=== PATIENT | female | born 1930 | race Caucasian/White ===

== ENCOUNTER 2018-09-10 16:57 | Inpatient (IN) | payer MEDICARE, BC ==
[~2018-09-10] VITALS: Ht 167.6 cm; Wt 65.0 kg
[~2018-09-10 16:57] MED LIST: ASPIRIN 32325 MG/TA1 PO; ASPIRIN 32325 MG/TAB PO; NO HOME MEDICATIONS; NORCO 325 MG-7.1 TAB PO; OCUVITE1 TA1 PO
[2018-09-10 17:43] LABS: BASO % 0.2 % (0.0-2.0); EOS % 0.1 % (0-4.0); GRAN # 13.7 (1.4-6.5); GRAN % 87.6 % (42.2-75.2); HEMATOCRIT 38.4 % (37.0-47.0); HEMOGLOBIN 12.6 g/dl (12.5-16.0); LYMPH # 0.7 (1.2-3.4); LYMPH % 4.7 % (20.0-51.0); MEAN CELL VOLUME 91 fl (80.0-100.0); MEAN CORPUSCULAR HEMOGLOBIN 30 pg (27.0-31.0); MEAN CORPUSCULAR HGB CONC 33 g/dl (33.0-37.0); MEAN PLATELET VOLUME 10.9 fl (7.4-10.4); MONO # 1.1 (0.1-0.6); PLATELET COUNT 252 K/mm3 (130-400); RED BLOOD COUNT 4.23 M/mm3 (4.10-5.30); REDCELL DISTRIBUTION WIDTH-CV 12.5 % (11.5-14.5)
[2018-09-10 18:06] LABS: PROTHROMBIN TIME 11.2 SECONDS (9.7-12.8)
[2018-09-10 18:11] LABS: COLLECTION METHOD CLEAN CATCH
[2018-09-10 18:12] LABS: ALANINE AMINOTRANSFERASE < 6 U/L (9-52); ALBUMIN 4.4 gm/dL (3.5-5.0); ALKALINE PHOSPHATASE 103 U/L (50-136); ANION GAP 12 mmol/L (7-16); AST,SGOT 29 U/L (15-37); BILIRUBIN,TOTAL 0.5 mg/dL (0.0-1.0); BLOOD UREA NITROGEN 28 mg/dL (7-17); C-REACTIVE PROTEIN 0.6 mg/dL (0.0-0.9); CALCIUM 9.6 mg/dL (8.4-10.2); CARBON DIOXIDE 25 mmol/L (22-30); CHLORIDE 103 mmol/L (98-107); CREATININE, serum 0.87 (0.52-1.25); GLUCOSE 123 mg/dL (74-106); POTASSIUM 4.2 mmol/L (3.4-5.0); SODIUM 140 mmol/L (137-145); TOTAL PROTEIN 8.1 gm/dL (6.4-8.2)
[2018-09-10 18:22] LABS: TROPONIN-I < 0.012 ng/mL (0.000-0.035)
[2018-09-10 18:23] LABS: MUCOUS Present /lpf; PH 5 (5-8); SQUAMOUS EPITHELIAL 0-2 /hpf; URINE APPEARANCE Hazy; URINE BACTERIA Rare /hpf; URINE BILIRUBIN Negative (NEGATIVE); URINE BLOOD 2+ (NEGATIVE); URINE COLOR Yellow; URINE GLUCOSE Negative (NEGATIVE); URINE KETONE Trace (NEGATIVE); URINE LEUKOCYTE ESTERASE 2+ (NEGATIVE); URINE NITRATE Negative (NEGATIVE); URINE PROTEIN(semi-quant) Negative (NEGATIVE); URINE UROBILINOGEN Negative (NEGATIVE)
[2018-09-10 22:26] VITALS: BP 143/52; PULSE 86; TEMP 98.1
--- NOTE | 2018-09-10 22:27 | NUR ---
pt arrived to medical floor, oriented to staff and room. A+Ox4, reports pain 3/10 when taking a deep breath- 1/10 when just relaxing. pt has nitropas on her left shoulder blade. no SOA. normal heart sounds and rythm. bowel sounds heard throughout abd. abd soft. BM 09/10/18. lung bases- fine crackles. upper lung field clear. no edema no lang. pedal and radial pulses 2+. no skin break down noted. VSS. pt reports no needs at this time. call light in reach
[2018-09-10 23:22] VITALS: BP 145/54; PULSE 87; TEMP 97.8
[2018-09-11] VITALS (9 sets, daily range): BP systolic 103–139; BP diastolic 28–82; PULSE 83–90; TEMP 97.5–98.3
--- NOTE | 2018-09-11 01:49 | NUR ---
PT REPORTS 8/10 CHEST PAIN. VSS, SAT 93%. DR COWAN NOTIFIED. NITRO AND MORPHINE GIVEN AT THIS TIME. EKG ORDERED NOW. MORNING TROPONIN AND EKG ORDERED. WILL CONTINUE TO MONITOR.
--- NOTE | 2018-09-11 01:57 | NUR ---
AFTER FIRST SUBL NITRO AND 1 MG OF MORPHINE PT DECREASED FROM 8/10 TO 4/10- 2ND NITRO GIVEN AT THIS TIME.
--- NOTE | 2018-09-11 02:06 | NUR ---
BP STABLE. PAIN 4/10 -THIRD NITRO GIVEN AT THIS TIME BP AFTER THIRD SUBL NITRO LOW BUT STABLE. PAIN 3/10. WILL CONTINUE TO MONITOR CLOSELY.
--- NOTE | 2018-09-11 03:30 | NUR ---
PT HAD CHEST PAIN AT THIS TIME. MOPHINE GIVEN AND GAVE RELIEF. PT SLEEPING AT THIS TIME. CALL LIGHT IN REACH. WILL CONTINUE TO MINITOR.
--- NOTE | 2018-09-11 05:42 | NUR ---
PT HAD CHEST PAIN DURING NIGHT. NITRO AND MORPHINE RELIEVED PAIN . PAIN. VSS. NO SOA. ON ROOM AIR. NPO FOR POSSIBLE PROCEDURE. PT REPORTS NOT BEING ABLE TO SLEEP. IV FLUSHES WELL, NO REDNESS. NO SWELLING. NO NEEDS AT THIS TIME. CALL LIGHT IN REACH
--- NOTE | 2018-09-11 07:28 | NUR ---
REPORT GIVEN TO VENESSA NOBLE
--- NOTE | 2018-09-11 08:22 | NUR ---
Pt awake and alert upon entry, no C/O pain at this time, started the remaining bowel prep for procedure this afternoon, shift assessments complete, left Pt call light in reach, bed in lowest position.
--- NOTE | 2018-09-11 09:06 | NUR ---
Pt awake upon entry, states that her chest pain in much better, shift assessments comnplete, left Pt call light in reach, bed in lowest position.
--- NOTE | 2018-09-11 10:59 | NUR ---
Initial visit; Patient thanked Roadway Designer for looking in on her and offering God's blessings.
--- NOTE | 2018-09-11 15:25 | NUR ---
CHRISTIE met with patient and daughter to discuss discharge planning. Patient lives independently at home alone but reports she is independent with her ADLs and her children live close by. Patient's PCP is Dr Lenz and she obtains prescriptions from [facility] pharmacy. Patient does not use any DME or home health servcies. Patient reports she does have a DPOA-HC. Patient's daughter reports they will need to obtain a copy from their tax associate attorney. SW does not anticipate any discharge needs.
--- NOTE | 2018-09-11 19:56 | NUR ---
Pt rrested in room during the day, little C/O pain needing medication for control. VS have remained stable.
--- NOTE | 2018-09-11 21:15 | NUR ---
TELE CALLED- PT IN AFIB WITH RVE RATE 140s. VSS AT THIS TIME. DR COWAN CALLED. ORDERS GIVEN: -BNP AND TROPONIN FOR MORNING LABS -AMIO -INCREASE IN LOVENOX SQ ORDERS PLACED AND GIVEN AT THIS TIME. PT IS GOING IN AND OUT OF AFIB WITH RVR/AFIB/NSR. NO S/S REPORTED BY PT. EXPLAINED RYTHM AND MEDICATIONS TO PT. PT REPORTS UNDERSTANDING. CHEST CT- NEG FOR A PE- RELAYED INFORMATION TO DR COWAN.
--- NOTE | 2018-09-11 21:30 | NUR ---
PT RESTING IN BED A+OX4. REPORTS NO PAIN AT THIS TIME. LUNGS CLEAR X4. BOWEL SOUNDS HEARD THROUGHOUT. NSR HEARD AT THIS TIME- NORMAL RRR HEARD. NO EDEMA NOTED. PEDAL AND RADIAL PULSES 2+. NO SOA. TELE ON. EDUCATION PROVIDED ON AMIO AND LOVENOX AND AFIB. PT REPORTS UNDERSTANDING AND NO QUESTIONS AT THIS TIME. SHIFT ASSESSMENT COMPLETE. NO NEEDS AT THIS TIME. CALL LIGHT IN REACH
[2018-09-12] VITALS (7 sets, daily range): BP systolic 106–127; BP diastolic 41–84; PULSE 75–82; TEMP 97.7–98.2
--- NOTE | 2018-09-12 05:41 | NUR ---
PT SLEPT THROUGHOUT NIGHT. PT IN AND OUT OF AFIB/AFIB W/RVR/AND NSR. TELE ON. DR COWAN NOTIFIED AND ORDERED GIVEN. AMIO STARTED. NO S/S WITH AFIB. PT REPORTED MINIMAL PAIN DURING NIGHT. IV FLUSHES WELL, NO REDNESS, NO SWELLING. PT GAIT STEADY, INDEPENDENT IN ROOM. REPORTS NO SOA. NO NEEDS A THIS TIME. CALL LIGHT IN REACH
--- NOTE | 2018-09-12 07:07 | NUR ---
REPORT GIVEN TO DAY SHIFT RN
[2018-09-12 07:12] LABS: TROPONIN-I 0.017 ng/mL (0.000-0.035)
--- NOTE | 2018-09-12 09:10 | NUR ---
Patient alert and oriented, answers questions appropriately. See assessment. Heart tones strong and even, pulses palpable. No c/o chest, jaw or shoulder pain. No other c/o at this time.
--- NOTE | 2018-09-12 20:15 | NUR ---
PT RESTING IN BED A+OX4. REPORTS NO PAIN AT THIS TIME OR DURING DAY. VSS. TELE ON. LUNGS CLEAR X4. AUDIBEL BOWEL SOUNDS. HEART NORMAL RRR. STEADY GAIT. EDUCATION ON HEART CATH, AMIO AND LOVENOX. IV FLUSHES WELL, NO REDNESS, NO SWELLING.
--- NOTE | 2018-09-13 03:02 | NUR ---
pt reports no pain during night. sleeping well during the night. no needs, call light in reach
[2018-09-13 03:22] VITALS: BP 134/59; PULSE 69; TEMP 97.7
--- NOTE | 2018-09-13 07:22 | NUR ---
pt had an uneventful night. reported no pain. iv flushes well, no redness no swelling. tele on. reports no needs at this time. call light in reach. report given to dayshift nurse.
[2018-09-13 07:36] VITALS: BP 112/48; PULSE 66; TEMP 97.6
[2018-09-13 11:00] VITALS: BP 132/48; PULSE 68; TEMP 98.1
[2018-09-13 16:25] VITALS: BP 142/51; PULSE 64; TEMP 97.6
[2018-09-13 19:37] VITALS: BP 135/48; PULSE 66; TEMP 98
--- NOTE | 2018-09-13 20:00 | NUR ---
Shift assessment complete. Pt resting in bed, awake, a&o, cooperative c cares. Pt denies pain at this time. INT patent. Tele in place. Pt denies needs. Call light in reach, will monitor.
[2018-09-13 21:06] LABS: HEMOGLOBIN 11.1 g/dl (12.5-16.0); MEAN CELL VOLUME 90 fl (80.0-100.0); MEAN CORPUSCULAR HEMOGLOBIN 30 pg (27.0-31.0); MEAN CORPUSCULAR HGB CONC 33 g/dl (33.0-37.0); MEAN PLATELET VOLUME 11.5 fl (7.4-10.4); PLATELET COUNT 222 K/mm3 (130-400); RED BLOOD COUNT 3.73 M/mm3 (4.10-5.30); REDCELL DISTRIBUTION WIDTH-CV 12.2 % (11.5-14.5)
[2018-09-13 21:16] LABS: HEMATOCRIT 33.5 % (37.0-47.0)
[2018-09-13 21:19] LABS: PROTHROMBIN TIME 11.3 SECONDS (9.7-12.8)
[2018-09-13 21:22] LABS: CALCIUM 9.1 mg/dL (8.4-10.2); CREATININE, serum 0.9 (0.52-1.25); PARTIAL THROMBOPLASTIN TIME 33.1 SECONDS (26.0-37.0)
[2018-09-13 23:46] VITALS: BP 152/81; PULSE 72; TEMP 98.3
[2018-09-14] VITALS (13 sets, daily range): BP systolic 84–189; BP diastolic 42–78; PULSE 60–76; TEMP 97.5–97.7
--- NOTE | 2018-09-14 10:12 | NUR ---
PT SITTING IN BED WATCHING TV. NO C/O PAIN AT THIS TIME. ADMINSTERED PT AM MEDICATIONS, HEART CATH TO BE AT LATER HOUR THIS AM OR IN EARLY AFTERNOON. PT STATED SHE STILL WAS SOMEWHAT UNCLEAR ON PROCEDURE. THIS NURSE PRINTED OFF PT EDUCATION FOR PT ABOUT CHEST PAIN AND ABOUT HEART CATH FOR PT TO READ THREW. NO ISSUES OR CONSERNS VOICED AT THIS TIME.
--- NOTE | 2018-09-14 15:00 | NUR ---
PT DOWN FOR HEART CATH AT THIS TIME.
[2018-09-14] MEDS ORDERED: TOPROL XL 25MG25 MG PO (15:53)
[2018-09-14] MEDS ORDERED: ASPIRIN 81M81 MG/TA2 PO (15:54)
[2018-09-14] MEDS ORDERED: CORDARONE200 MG/TAB PO (15:54)
[2018-09-14] MEDS ORDERED: LIPITOR20 MG PO (15:54)
--- NOTE | 2018-09-14 16:00 | NUR ---
PT RETURNED TO FLOOR AT THIS TIME, POST OP VITALS BEING OBTIANED. NO C/O PAIN OR NOTED BLEEDING TO RADIAL SITE, READIAL BAND IN PLACE.
--- NOTE | 2018-09-14 18:14 | NUR ---
VITALS SIGNS REMAIN STABLE, HAD ONE DIP IN B/P WHEN SHE WAS TAKING A NAP BUT RETURNED TO BASELINE. POST-OP FLUIDS REMAIN INFUSING. THIS NURSE REMOVED 5ML OF AIR FROM BAND AT THIS TIME, 2 HRS POST OP, NO NOTED BLEEDING. WILL CONTINUE TO MONITOR
--- NOTE | 2018-09-14 19:15 | NUR ---
Shift report recvieved. Shift assessment complete. Pt resting in bed, awake, a&o, cooperative c cares. Pt c/o pain at radial cath site, denies chest pain or any other c/o. TR band removed et bandaid applied at this time. Mild \ecchymosis noted around cath site, no bleeding or edema. VSS. Tele in place. IV INT'd. Discharge order et POC reviewed c pt et daughter, both verbalize understanding. Pt denies further needs. Call light in reach, will monitor.
--- NOTE | 2018-09-14 19:20 | NUR ---
LAST OF AIR REMOVED FROM RADIAL ARM BAND, BAND LEFT ON, NO NOTED BLEEDING AT SITE. NO ISSUES OR CONSERNS VOICED. REPORT GIVEN TO WILLIAMS CLIFFORD
--- NOTE | 2018-09-14 21:00 | NUR ---
Pt condition unchanged. VSS. Radial cath site s bleeding/edema or other complication. Discharge teaching reviewed c pt et daysi. Questions invited et answered, both verbalize understanding. Tele removed. INT dc'd. Pt escorted out per wheelchair by GIGI tavarez et all belongings.
== END 2018-09-14 21:15 | disposition home or self-care (01) | DRG 287 ==
LOC: COL.ER 16:57 → MEDICAL 21:16
PROVIDERS: Emergency Medicine; ADMIT Internal Medicine Interventional Cardiology
PROC: 4A023N7 Measurement of Cardiac Sampling and Pressure, Left Heart, Percutaneous Approach (ICD-10-PCS; principal; 2018-09-14)
PROC: B2111ZZ Fluoroscopy of Multiple Coronary Arteries using Low Osmolar Contrast (ICD-10-PCS; 2018-09-14)
DX: I25.110 Atherosclerotic heart disease of native coronary artery with unstable angina pectoris (principal); E78.5 Hyperlipidemia, unspecified; I10 Essential (primary) hypertension; R07.89 Other chest pain
CPT/HCPCS: A4216; C1769; G0378; J0696; J1644; J1650; J1885; J2250; J2270; J3010; J7030; Q9967

== ENCOUNTER 2020-09-05 11:27 | Inpatient (IN) | payer MEDICARE, BC ==
[~2020-09-05] VITALS: Ht 167.6 cm; Wt 56.8 kg
[~2020-09-05 11:27] MED LIST changes: +ASPIRIN 81M81 MG/TA2 PO; +CORDARONE200 MG/TAB PO; +LIPITOR20 MG PO; +TOPROL XL 25MG25 MG PO
[2020-09-05 12:19] LABS: BASO % 0.1 % (0.0-2.0); GRAN # 12.7 (1.4-6.5); GRAN % 87.4 % (42.2-75.2); HEMOGLOBIN 12.2 g/dl (12.5-16.0); LYMPH # 0.8 (1.2-3.4); LYMPH % 5.3 % (20.0-51.0); MEAN CELL VOLUME 87 fl (80.0-100.0); MEAN CORPUSCULAR HEMOGLOBIN 30 pg (27.0-31.0); MEAN CORPUSCULAR HGB CONC 34 g/dl (33.0-37.0); MEAN PLATELET VOLUME 10.8 fl (7.4-10.4); MONO % 6.7 % (1.7-9.3); PLATELET COUNT 239 K/mm3 (130-400); RED BLOOD COUNT 4.14 M/mm3 (4.10-5.30); REDCELL DISTRIBUTION WIDTH-CV 13.4 % (11.5-14.5)
[2020-09-05 12:23] LABS: HEMATOCRIT 36.2 % (37.0-47.0)
[2020-09-05 12:27] LABS: ALBUMIN 4.2 gm/dL (3.5-5.0); CALCIUM 9.3 mg/dL (8.4-10.2); CREATININE, serum 0.68 (0.52-1.25); POTASSIUM 3.9 mmol/L (3.4-5.0); TOTAL PROTEIN 7.8 gm/dL (6.4-8.2)
[2020-09-05 16:42] VITALS: BP 160/78; PULSE 96; TEMP 98
[2020-09-05 17:08] LABS: COLLECTION METHOD CLEAN CATCH
[2020-09-05 17:16] LABS: PH 6 (5-8); SQUAMOUS EPITHELIAL 0-2 /hpf; URINE APPEARANCE Clear; URINE BACTERIA None Seen /hpf; URINE BILIRUBIN Negative (NEGATIVE); URINE BLOOD 1+ (NEGATIVE); URINE COLOR Yellow; URINE GLUCOSE 1+ (NEGATIVE); URINE KETONE Trace (NEGATIVE); URINE LEUKOCYTE ESTERASE Negative (NEGATIVE); URINE NITRATE Negative (NEGATIVE); URINE PROTEIN(semi-quant) Negative (NEGATIVE); URINE UROBILINOGEN Negative (NEGATIVE)
--- NOTE | 2020-09-05 19:06 | NUR ---
Assessment completed, alert/oriented, vital signs stable, pain rated 5-6/ 10, morphine was making her nauseated in ER, we will hold off on pain meds for now, heart RRR/ SR on tele, lungs CTA/ no resp.difficulty, left knee swelling noted, ICE applied to left hip, allergies/pharmacy/meds reviewed, ELA applied to unaffected LE, will continue to monitor
[2020-09-05 20:05] VITALS: BP 144/62; PULSE 64; TEMP 98.2
--- NOTE | 2020-09-05 20:30 | NUR ---
Pt. laying in bed. Pt. is A&OX3, assessment complete. IV to lt. wrist patent, IV fluids infusing per orders. Pt. reports pain at a 5 on pain scale, gave pain meds per orders. Pt. denies further needs, call light within reach.
[2020-09-05 23:48] VITALS: BP 131/52; PULSE 91; TEMP 97.5
[2020-09-06] VITALS (11 sets, daily range): BP systolic 99–153; BP diastolic 39–66; PULSE 72–96; TEMP 97.4–98.2
[2020-09-06 07:03] LABS: HEMOGLOBIN 11.4 g/dl (12.5-16.0); MEAN CELL VOLUME 91 fl (80.0-100.0); MEAN CORPUSCULAR HEMOGLOBIN 30 pg (27.0-31.0); MEAN CORPUSCULAR HGB CONC 33 g/dl (33.0-37.0); MEAN PLATELET VOLUME 11.5 fl (7.4-10.4); PLATELET COUNT 213 K/mm3 (130-400); RED BLOOD COUNT 3.82 M/mm3 (4.10-5.30); REDCELL DISTRIBUTION WIDTH-CV 13.8 % (11.5-14.5)
[2020-09-06 07:04] LABS: HEMATOCRIT 34.7 % (37.0-47.0)
[2020-09-06 07:12] LABS: CALCIUM 9.1 mg/dL (8.4-10.2); CHOLESTEROL RISK RATIO 2.5; CREATININE, serum 0.85 (0.52-1.25)
--- NOTE | 2020-09-06 08:00 | NUR ---
PATIENT IS A&O. VSS WITH TELE INPLACE. DENIES PAIN AT REST IN LLE. LLE IS EXTERNALLY ROTATED AND SHORTENED. TEDS TO RLE. SCD'S TO BLE. PATIENT IS ON BEDREST AND NPO FOR PENDING SURGERY TODAY. HOSPITALIST HAS CLEARED PATIENT, ORTHO NOTIFIED. PATIENT'S RECORDS REQUESTED FROM PCP. PATIENT IS NON-COMPLIENT WITH HOME MEDS AND HASN'T SEEN PCP SINCE 2019. WAITING ON RECORDS TO BE FAXED. IV FLUIDS INFUSING INTO LEFT WRIST IV. BHANDARI TO DD. HEAD TO TOE ASSESSMENT COMPLETE. NO OTHER NEEDS. CALL LIGHT IN REACH.
--- NOTE | 2020-09-06 10:50 | NUR ---
Initial visit; Patient thanked Colored Leather Setter for looking in on her and offering prayer and God's blessings.
--- NOTE | 2020-09-06 11:47 | NUR ---
SW met with patient to complete intake. Patient states that she lives in [place] alone, POC is daughter Anita [phone] and daughter Romana [phone]. Patient states that she uses a cane most of the time to get around, and is independent with ADL's. Patient states that her PCP is Dr. Lenz, pharmacy is [facility], and is able to afford her medications. Patient states that she will check her records for the documenation for the [facility]- and get a copy to the facility. Patient provides that she was informed that she needed to go to rehab and would prefer the one in [place], but is open to any other places close by. SW assisted with sending referrals to each agency: [place], [facility] and [facility] all in which patient was okay with. SW will continue to follow. Plan: skilled
--- NOTE | 2020-09-06 13:50 | NUR ---
NURSING STAFF NOTIFIED OF OR TIME. NO ORDERS, BLANK CONCENT ON CHART. DAUGHTER NOTIFIED. ANESTHESIA NOW AT BEDSIDE.
--- NOTE | 2020-09-06 14:15 | NUR ---
AT BEDSIDE. CONSENT FILLED OUT AND OBTAINED VIA PHONE WITH DAUGHTER. PATIENT IS CONFUSED AT TIMES. DAUGHTER GAVE CONSENT FOR SURGERY. PATIENT GOING DOWN TO OR VIA BED.
--- NOTE | 2020-09-06 17:10 | NUR ---
PATIENT BACK IN ROOM 329 POST OP LEFT HIP FX REPAIR. PATIENT IS VERY DROWSY AND CURRENTLY SLEEPING. DAUGHTER AT BEDSIDE. NOTED SOFT PRESSURES IN THE 90'S TO LOW 100'S SYSTOLIC. PATIENT IS PALE. HEART RATE IS IRREGULAR ON TELE IN THE 60'S. PATIENT HAS A HX OF A-FIB. PATIENT APPEARS TO BE COMFORTABLE. LEFT HIP DRESSING IS CD&I. IV FLUIDS INFUSING INTO LEFT WRIST VIA PUMP. PATIENT RESTING WITH CALL LIGHT IN REACH.
--- NOTE | 2020-09-06 21:00 | NUR ---
Pt. laying in bed at this time. Pt. is A&OX3, but forgettfull that she had surgery. Shift assessment complete. IV to lt. wrist patent, IV fluids infusing per orders. Lao catheter to DD, clear yellow urine noted. Dressing to lt. hip CDI. Pt. denies pain or other needs, call light within reach.
[2020-09-07] VITALS (262 sets, daily range): BP systolic 91–135; BP diastolic 46–67; PULSE 78–140; TEMP 97.5–98.7; O2SAT 89–100
--- NOTE | 2020-09-07 01:50 | NUR ---
fiberglass quality technician reports that pt.'s heart rate in the 140's. JASMEET Pal notified, orders for EKG.
--- NOTE | 2020-09-07 01:56 | NUR ---
EKG complete, see chart. Pt.'s vital stable.
[2020-09-07 06:36] LABS: BASO % 0.1 % (0.0-2.0); EOS % 0.3 % (0-4.0); GRAN # 6.3 (1.4-6.5); GRAN % 69.9 % (42.2-75.2); LYMPH # 1.6 (1.2-3.4); LYMPH % 17.7 % (20.0-51.0); MEAN CELL VOLUME 90 fl (80.0-100.0); MEAN CORPUSCULAR HEMOGLOBIN 29 pg (27.0-31.0); MEAN CORPUSCULAR HGB CONC 32 g/dl (33.0-37.0); MEAN PLATELET VOLUME 11.4 fl (7.4-10.4); MONO % 11.4 % (1.7-9.3); PLATELET COUNT 196 K/mm3 (130-400); RED BLOOD COUNT 3.45 M/mm3 (4.10-5.30); REDCELL DISTRIBUTION WIDTH-CV 13.5 % (11.5-14.5)
[2020-09-07 06:39] LABS: HEMATOCRIT 31.1 % (37.0-47.0)
--- NOTE | 2020-09-07 09:03 | NUR ---
Contacted hospitalist, patient HR 140's. Notified RT of EKG orders. Patient asymptomatic. VSS, 120/47, 148, 92% ON 2l.
--- NOTE | 2020-09-07 09:38 | NUR ---
Dr. White in to see patient.
--- NOTE | 2020-09-07 10:08 | NUR ---
Initiated cardizem drip per orders. Patient denies needs at this time.
[2020-09-07 10:12] LABS: CALCIUM 8.6 mg/dL (8.4-10.2); CREATININE, serum 0.83 (0.52-1.25); MAGNESIUM 1.9 mg/dL (1.6-2.3); POTASSIUM 3.6 mmol/L (3.4-5.0)
--- NOTE | 2020-09-07 10:52 | NUR ---
Attempted to call daughter Anita to update on patient status.
--- NOTE | 2020-09-07 10:56 | NUR ---
SW followed up with facilities referrals. [facility] accepted, [facility] accepted. SW informed that patient will be transfered to ICU due to a clinical need. SW will continue to follow and send updates to facilities as needed.
[2020-09-07 10:58] LABS: PARTIAL THROMBOPLASTIN TIME 22.8 SECONDS (26.0-37.0)
--- NOTE | 2020-09-07 11:05 | NUR ---
Notified by Tele that patient converted to Sinus rhythm, notified hospitalist and obtained EKG.
--- NOTE | 2020-09-07 11:50 | NUR ---
Attempted to call report to ICU
--- NOTE | 2020-09-07 11:52 | NUR ---
Patient HR back to 140's, notified hospitalist and ekg obtained.
--- NOTE | 2020-09-07 12:13 | NUR ---
Cardizem drip increased to 10ml/hr per orders by warehouse general laborer. Pedro CLIFFORD.
--- NOTE | 2020-09-07 12:20 | NUR ---
Report to Blake CLIFFORD, patient transfering to ICU
--- NOTE | 2020-09-07 12:40 | NUR ---
1240: Pt arrived from Surgical floor, awake, alert and cunfused and disoriented. Pt unable to state reason for for transfer to ICU. Pt however is pleasant and able to state name and , pt did think she was in [place]. Reporientation and education provided, recall limited. 1300: pharmacy called for proper tubing to switch from diltiazem gtt to amiodarone gtt. 1330: Tubing arrived and gtt initiated, diltiazem gtt stopped.
--- NOTE | 2020-09-07 16:36 | NUR ---
Report taken from VENESSA Lozano. Pt resting in bed breathing even and unlabored on 2L O2 via NC. Pt denies any SOB or pain at this time. LLE elevated on pillows, swelling to L hip dressing CDI. Amio and heparin infusing per protocol. Pt has no needs at this time.
--- NOTE | 2020-09-07 20:00 | NUR ---
PATIENT IS CONFUSED, ORIENTED X1. HR REPORTED TO BE HIGH THE 140'S, A-FIB ON TELE. HR IS CURRENTLY IN THE 80'S ON AMIO GTT INFUSING AT 0.5MG/MIN INTO LEFT FORARM IV. HEPARIN GTT ALSO INFUSING INTO ANOTHER LEFT FORARM IV AT 10CC/HR. PATIENT HAS HX OF A-FIB BUT IS KNOWN TO BE NON-COMPLIENT WITH MEDS & FOLLOWING UP WITH HER PCP. HEART RATE SOUNDS REGULAR TO AUSCULTATION AND IS RATE CONTROLED IN THE 80-90'S. ALL OTHER VSS. PATIENT DENIES SOA OR PAIN. LEFT HIP IS SWOLLEN WITH ECCYMOSIS FROM HIP FX REPAIR. LEFT HIP DRESSINGS ARE CD&I WITH GAUZE & TEGADERM. TEDS & SCD'S TO BLE. POSITIVE PEDAL PULSES TO BLE. BHANDARI TO DD WITH SMALL AMOUNTS OF CLEAR YELLOW URINE NOTED. PATIENT TOLERATING MECH SOFT DIET. NO C/O N/V. PATIENT WAS ABLE TO SWALLOW PILLS WITHOUT DIFFICULTY. HEAD TO TOE ASSESSMENT COMPLETE. DNR STATUS REVIEWED. NO OTHER NEEDS AT THIS TIME. CALL LIGHT IN REACH.
[2020-09-08] VITALS (510 sets, daily range): BP systolic 90–135; BP diastolic 47–65; PULSE 85–130; TEMP 97.6–98.3; O2SAT 69–100
--- NOTE | 2020-09-08 | NUR ---
PATIENT HAS BEEN RESTING QUIETLY. PATIENT HAS BEEN GOING IN & OUT OF A-FIB. HR RANGING FROM 80-130'S. PATIENT IS ASYMPTOMATIC. ALL OTHER VSS. I&O'S COMPLETED. NO NEEDS. LAB IS NOW AT BEDSIDE TO DRAW HEPXA
[2020-09-08 06:11] LABS: MEAN CELL VOLUME 90 fl (80.0-100.0); MEAN CORPUSCULAR HGB CONC 33 g/dl (33.0-37.0); MEAN PLATELET VOLUME 10.9 fl (7.4-10.4); PLATELET COUNT 192 K/mm3 (130-400); RED BLOOD COUNT 2.97 M/mm3 (4.10-5.30); REDCELL DISTRIBUTION WIDTH-CV 13.7 % (11.5-14.5)
[2020-09-08 06:12] LABS: HEMATOCRIT 26.6 % (37.0-47.0); HEMOGLOBIN 8.7 g/dl (12.5-16.0); MEAN CORPUSCULAR HEMOGLOBIN 29 pg (27.0-31.0)
[2020-09-08 06:20] LABS: CALCIUM 8.2 mg/dL (8.4-10.2); CREATININE, serum 0.76 (0.52-1.25); MAGNESIUM 1.9 mg/dL (1.6-2.3); POTASSIUM 3.9 mmol/L (3.4-5.0)
--- NOTE | 2020-09-08 07:45 | NUR ---
PATIENT FOUND SITTING UP IN BED, AWAKE, RESPONDING TO VERBAL STIMULI. ORIENTED X2 WITH INTERMITTENT CONFUSION. PATIENT IS A-FIB WITH HR INTO THE 120'S. HEART SOUNDS IRREGULAR, LUNG SOUNDS CLEAR, BOWEL SOUNDS ACTIVE. 2 IV TO LEFT FOREARM, INFUSING WITHOUT DIFFICULTY. NO IRRITATION NOTED. BHANDARI IN PLACE DRAINING CLEAR YELLOW URINE. PATIENT HAS 2 SURGICAL DRESSINGS TO LEFT OUTER THIGH. BRUISING AND SWELLING NOTED. REMOVED ICE PACK FROM AREA. CONTINUES TO WEAR ELA HOSE. CALL CARDONA WITHIN REACH, ALL SAFETY MAINTAINED.
--- NOTE | 2020-09-08 08:30 | NUR ---
PATIENT CONVERTED TO NSR, WILL CONTINUE TO MONITOR.
--- NOTE | 2020-09-08 14:37 | NUR ---
PATIENT STATES SHE HAS PAIN OF 8/10 TO RIGHT LEG. REQUESTING PAIN PILL AT THIS TIME. PATIENT IS ALERT AND ORIENTED, DAUGHTER AT BEDSIDE.
--- NOTE | 2020-09-08 16:39 | NUR ---
THIS RN CALLED DR. READ IN REGARDS TO SWITCHING TO PO AMIODORONE. ORDERS RECIEVED FOR AMIODORONE PO 400MG BID. ORDERS READ BACK AND CONFIRMED.
--- NOTE | 2020-09-08 20:50 | NUR ---
PT AWAKE, CONFUSED TO PLACE AND IS YELLING OUT FOR HER DAUGHTER. WHEN REORIENTING PT, SHE STATES "I KNOW". PT HAD LEGS OUT OF BED. ELECTED TO MOVE PT TO ROOM 325 FOR SAFETY.
--- NOTE | 2020-09-08 21:03 | NUR ---
MEDICATED WITH HS MEDS INCLUDING OXYCODONE 10MG PO AND MELATONIN 3MG PO FOR PAIN AND SLEEP. TAKES MEDS WITHOUT PROBLEM. SL X2 TO LEFT FOREARM, FLUSHES WELL. BHANDARI TO BSD, YELLOW URINE NOTED. BED ALARM ON.
--- NOTE | 2020-09-09 02:33 | NUR ---
PT HAS RT LEG OUT OF BED, WANTS TO "GO OUT THERE" REPORTS PAIN TO LEFT HIP. REPOSITIONED IN BED AND NORCO GIVEN.
[2020-09-09 04:10] VITALS: BP 126/48; PULSE 96; TEMP 98.9
--- NOTE | 2020-09-09 06:17 | NUR ---
PT TAKES SCHEDULED AM MED AND ONE OXYCODONE 5MG PO FOR LEFT HIP PAIN.
[2020-09-09 07:01] VITALS: BP 118/42; PULSE 86; TEMP 97.5
[2020-09-09 07:32] LABS: MEAN CELL VOLUME 91 fl (80.0-100.0); MEAN CORPUSCULAR HGB CONC 32 g/dl (33.0-37.0); MEAN PLATELET VOLUME 11.3 fl (7.4-10.4); PLATELET COUNT 223 K/mm3 (130-400); RED BLOOD COUNT 2.57 M/mm3 (4.10-5.30); REDCELL DISTRIBUTION WIDTH-CV 13.8 % (11.5-14.5)
[2020-09-09 07:44] LABS: HEMATOCRIT 23.4 % (37.0-47.0); HEMOGLOBIN 7.5 g/dl (12.5-16.0); MEAN CORPUSCULAR HEMOGLOBIN 29 pg (27.0-31.0)
--- NOTE | 2020-09-09 07:50 | NUR ---
PT PROGRESSING W/ PLAN OF CARE. PT RESTING IN BED COMFORTABLY AT THIS TIME. PT ALERT AND ANSWERS QUESTIONS APPROPRIATELY. BHANDARI CATH DRAINING CLEAR, YELLOW URINE, PLAN TO DISCUSS W/ PROVIDER TODAY REGARDING REMOVING BHANDARI CATH. PT DENIES PAIN WHILE AT REST.
[2020-09-09 11:31] VITALS: BP 107/49; PULSE 84; TEMP 97.6
[2020-09-09 14:47] LABS: HEMATOCRIT 23.6 % (37.0-47.0); HEMOGLOBIN 7.6 g/dl (12.5-16.0)
[2020-09-09 16:00] VITALS: BP 129/46; PULSE 84; TEMP 98.6
--- NOTE | 2020-09-09 17:36 | NUR ---
Pt. progressing w/ plan of care. Lao cath removed per KRISTA Hurtado's order. Pt. hygeine provided and tolerated well. Pt. encouraged to get OOB to chair this afternoon but pt. refused. Pt. reports her mild pain to left hip is tolerable. Pt. alert, denies further needs.
[2020-09-09 19:30] VITALS: BP 106/47; PULSE 95; TEMP 98.2
--- NOTE | 2020-09-09 21:26 | NUR ---
PT IN BED. ORIENTED TO SELF, NOT SURE WHERE SHE IS AND WHY. MEDICATED WITH HS MEDS INCLUDING NORCO 1 TAB FOR LEFT HIP DISCOMFORT, TAKES WITHOUT DIFFICULTY. HAS NOT VOIDED SINCE BHANDARI REMOVED LATE AFTERNOON.
--- NOTE | 2020-09-09 22:00 | NUR ---
PT ASSISTED TO BSC WITH 2/GAIT BELT AND WALKER. DOES FAIR. VOIDS 200CC OF YELLOW URINE. BACK TO BED WITH ASSIST OF 2. INCISIONS TO LEFT HIP X2 WITH GAUZE D/I, ECCHYMOSIS PRESENT TO LEFT HIP/LEG. SL X2 TO LEFT FOREARM, FLUSHED WITHOUT PROBLEM.
[2020-09-09 23:57] VITALS: BP 129/40; PULSE 93; TEMP 98.6
[2020-09-10] VITALS (8 sets, daily range): BP systolic 99–140; BP diastolic 40–63; PULSE 82–90; TEMP 97.9–98.8
--- NOTE | 2020-09-10 04:00 | NUR ---
RESTING WELL. DENIES PAIN AT THIS TIME.
[2020-09-10 06:24] LABS: MEAN CELL VOLUME 91 fl (80.0-100.0); MEAN CORPUSCULAR HGB CONC 32 g/dl (33.0-37.0); MEAN PLATELET VOLUME 11.2 fl (7.4-10.4); PLATELET COUNT 231 K/mm3 (130-400); RED BLOOD COUNT 2.22 M/mm3 (4.10-5.30); REDCELL DISTRIBUTION WIDTH-CV 13.8 % (11.5-14.5)
[2020-09-10 06:35] LABS: HEMATOCRIT 20.2 % (37.0-47.0); HEMOGLOBIN 6.5 g/dl (12.5-16.0); MEAN CORPUSCULAR HEMOGLOBIN 29 pg (27.0-31.0)
[2020-09-10 06:41] LABS: CALCIUM 8.3 mg/dL (8.4-10.2); CREATININE, serum 1.07 (0.52-1.25); POTASSIUM 4.4 mmol/L (3.4-5.0)
[2020-09-10 07:20] LABS: EOSINOPHIL 2 % (0-4); LYMPHOCYTE 23 % (20.0-51.0); METAMYELOCYTE 1 % (0-0); NEUTROPHILS 69 % (42.0-75.2)
[2020-09-10 07:21] LABS: PLATELET ESTIMATE NORMAL (NORMAL)
[2020-09-10 07:22] LABS: MICROCYTOSIS 2+
[2020-09-10 07:23] LABS: ANISOCYTOSIS 1+
--- NOTE | 2020-09-10 09:50 | NUR ---
Patient is lying in bed, some blood samples are taken. She is awake and oriented x 2, no nausea or vomiting. Reports constant pain in her left hip. She already finished her breakfast. SCDs and TEDS applied. ICE in the left hip incition. Inciton is warm. No further needs at this time. Call light within reach.
--- NOTE | 2020-09-10 14:19 | NUR ---
It is initiated blood transfusion. Patient is lying in bed.
--- NOTE | 2020-09-10 17:23 | NUR ---
Blood transfusion is completed. Patient tolerated without troubles.
--- NOTE | 2020-09-10 17:26 | NUR ---
Patient has been stable, she is alert but not oriented about the time. One unit of blood was transfused and well tolerated. Waiting for hemoglobin levels to rise tomorrow and be transfered to [facility]. Daughter Anita visited today. Patient is resting in room right now. Nof further needs at this time. Call light within reach.
--- NOTE | 2020-09-10 17:29 | NUR ---
Patient completed blood transfusion and tolerated well. Nurse ordered patient dinner, and will try and get the patient to eat. Patient states food does not taste good and that she is not very hungry. Left thigh incision CDI, ice applied. Denies pain and discomfort when laying still in bed. VSS. Call light within reach. Bed alarm on
--- NOTE | 2020-09-10 21:20 | NUR ---
ASSISTED TO BSC WITH 2/GAIT BELT/WALKER, DOES WELL. VOIDS AND BACK TO BED. DRSG TO LEFT HIP WITH DRAINAGE, NEW GAUZE APPLIED. OUTER LEFT LEG DRSG INTACT, HAS LARGE AMOUNT OF BRUISING NOTED. BACK TO BED. TAKES HS MEDS INCLUDING NORCO 1 TAB FOR PAIN TO LEFT HIP WITH ACTIVITY. SCDS ON. REFUSES ELA BENAVIDES. IS ALERT, ORIENTED TO SELF, NOT SURE WHERE SHE IS OR WHERE HER DAUGHTER IS. REORIENTED AT THIS TIME.
[2020-09-11 00:03] VITALS: BP 116/44; PULSE 89; TEMP 98.2
[2020-09-11 03:07] VITALS: BP 139/46; PULSE 98; TEMP 97.7
--- NOTE | 2020-09-11 03:09 | NUR ---
PT HAS SCOOTED SELF TO EDGE OF BED, THINKS SHE IS GOING TO [place]. ASSISTED BACK TO BED AND REORIENTED AT THIS TIME. COMPLAINS OF "BROKEN HIP" MEDICATED WITH OXYCODONE 10MG PO NOW. TV ON.
--- NOTE | 2020-09-11 04:45 | NUR ---
PT DISORIENTED, ASSISTED TO BSC WITH 1/GAIT BELT/WALKER, DOES WELL. VOIDS AND BACK TO BED. PLACED ICE PACK TO LEFT HIP.
[2020-09-11 06:59] LABS: MEAN CELL VOLUME 88 fl (80.0-100.0); MEAN CORPUSCULAR HGB CONC 32 g/dl (33.0-37.0); PLATELET COUNT 288 K/mm3 (130-400); RED BLOOD COUNT 2.84 M/mm3 (4.10-5.30); REDCELL DISTRIBUTION WIDTH-CV 15.1 % (11.5-14.5)
[2020-09-11 07:06] LABS: HEMATOCRIT 25.1 % (37.0-47.0); MEAN CORPUSCULAR HEMOGLOBIN 28 pg (27.0-31.0)
[2020-09-11 07:31] VITALS: BP 141/51; PULSE 95; TEMP 98.2
--- NOTE | 2020-09-11 08:00 | NUR ---
Patient refused her breakfast and lunch this shift stating that she did not like hospital food. She was seen by therapy and did participate with those therapies. Patient reported pain to her left knee and was given prn pain meds. She reported nausea and this nurse received a new order from Dr. Borges for PO zofran as needed. Patient denied questions.
[2020-09-11 08:38] LABS: BASOPHIL 1 % (0-2); LYMPHOCYTE 15 % (20.0-51.0); METAMYELOCYTE 4 % (0-0); NEUTROPHILS 70 % (42.0-75.2); PLATELET ESTIMATE NORMAL (NORMAL)
[2020-09-11 08:39] LABS: ANISOCYTOSIS 2+
--- NOTE | 2020-09-11 10:17 | NUR ---
Patient resting in recliner, call light in reach and chair alarm set. Patient denies questions at this time. She reports that she does not like the food here at the hospital and that she does not eat a lot at home. Patient reports pain to left hip to be 7/10 and given prn pain med. She reported having some nausea this morning following receiving her oxycodone. Will administer Zofran prior to her dose of hydrocodone this morning.
[2020-09-11] MEDS ORDERED: NORCO 325 MG-51 TAB PO (10:41)
[2020-09-11] MEDS ORDERED: TYLENOL 325MG325 MG PO (10:41)
[2020-09-11] MEDS ORDERED: OSCAL 500 TAB500 MG PO (10:41)
[2020-09-11] MEDS ORDERED: PACERONE400 MG PO (10:41)
[2020-09-11] MEDS ORDERED: VITAMIN C500 MG PO (10:42)
[2020-09-11] MEDS ORDERED: MULTIPLE VITAMI1 TA5 PO (10:42)
[2020-09-11] MEDS ORDERED: PROTONIX 40MG T40 MG PO (10:42)
[2020-09-11] MEDS ORDERED: ZOFRAN ODT4 MG PO (10:42)
[2020-09-11 11:33] VITALS: BP 129/47; PULSE 83; TEMP 97.9
--- NOTE | 2020-09-11 13:10 | NUR ---
Patient was transferred to Inpatient Rehab. Her belongings were transferred over to room 338.
== END 2020-09-11 13:10 | DRG 481 ==
LOC: COL.ER 11:27 → SURG 12:53 → ICU 09-07 12:37 → SURG 09-08 18:19
PROVIDERS: Nurse Practitioner Primary Care; Orthopaedic Surgery; Physician Assistant; ADMIT Internal Medicine
PROC: 0QS736Z Reposition Left Upper Femur with Intramedullary Internal Fixation Device, Percutaneous Approach (ICD-10-PCS; principal; 2020-09-06 14:30)
DX: S72.142A Displaced intertrochanteric fracture of left femur, initial encounter for closed fracture (principal); I50.20 Unspecified systolic (congestive) heart failure; I48.0 Paroxysmal atrial fibrillation; I11.0 Hypertensive heart disease with heart failure; F03.90 Unspecified dementia, unspecified severity, without behavioral disturbance, psychotic disturbance, mood disturbance, and anxiety; E78.5 Hyperlipidemia, unspecified; Z85.3 Personal history of malignant neoplasm of breast; R41.0 Disorientation, unspecified; R11.10 Vomiting, unspecified; D64.9 Anemia, unspecified; D72.829 Elevated white blood cell count, unspecified; Z20.822 Contact with and (suspected) exposure to COVID-19; W18.30XA Fall on same level, unspecified, initial encounter; Y93.9 Activity, unspecified
CPT/HCPCS: 99223-AI; 99232-AI; 99233-AI; 99239; A9284; C1713; C9113; J0282; J0690; J1644; J1650; J2250; J2270; J2405; J2704; J2795; J7030; J7060; P9016

== ENCOUNTER 2020-09-11 11:11 | Inpatient (IN) | payer MEDICARE, BC ==
[~2020-09-11] VITALS: Ht 167.6 cm; Wt 68.2 kg
[~2020-09-11 11:11] MED LIST changes: +MULTIPLE VITAMI1 TA5 PO; +NORCO 325 MG-51 TAB PO; +OSCAL 500 TAB500 MG PO; +PACERONE400 MG PO; +PROTONIX 40MG T40 MG PO; +TYLENOL 325MG325 MG PO; +VITAMIN C500 MG PO; +ZOFRAN ODT4 MG PO
--- NOTE | 2020-09-11 13:10 | NUR ---
Patient arrived to room #338 this afternoon via wheelchair and was weighed on the standing scale. Patient was very agitated when she was brought over. She did not want to stay and wanted to go home. This nurse called her daughter Anita Herndon and she was able to arrive to assist with calming her mom down as well as feeding her some supper. Patient had refused both her breakfast and lunch this shift and when daughter brought her a hamburger she ate it with ease and fast. Discussed food options with patient and her daughter and those were faxed to the kitchen. Patient's daughter will be providing a date of her COVID vaccine that she had received sometime this week. Anita reported that she would be available to help out with any of her moms needs as she does not live to far away from the hospital if staff has difficulties with her. Patient was given tylenol to help with right knee pain. She did not complain of pain to her left hip. See new order for [place] to help with pain control. Patient has been very confused this shift. She was seeing a man in the corner of the room and tried to get out of bed multiple times without using her call light. Staff eventually had to help her out of bed and let her walk around the room to make sure that there was no man looking at her. This nurse had patient wheel around with her while she did other tasks to calm patient down. The chair alarm was on and she wore her mask at all times.
[2020-09-11 17:47] VITALS: BP 141/53; PULSE 80; TEMP 97.6
[2020-09-11 18:00] VITALS: BP 141/53; PULSE 80; TEMP 97.6
--- NOTE | 2020-09-11 19:19 | NUR ---
CHANGE OF SHIFT REPORT RECEIVED FROM DAY SHIFT NURSE. BED ALARM ON WHEN BACK IN BED. PATIENT CONFUSED, FOLLOWS SOME COMMANDS. REPORTS SOME PAIN THAT PATIENT DOES NOT ANSWER QUESTION OF WHERE PAIN IS. CONSTANTLY ATTEMPTS TO GET OUT OF BED, SETTING OFF BED ALARM. TYLENOL GIVEN FOR PAIN.
--- NOTE | 2020-09-12 06:00 | NUR ---
PROTONIX NOT GIVEN AT THIS TIME, PATIENT SLEEPING, DAUGHTER LEFT. PATIENT HAD BEEN AWAKE AND RESTLESS FOR MAJORITY OF NIGHT WITH DAUGHTER SITTING WITH PATIENT AT BEDSIDE. PATIENT WOULD FREQUENTLY ATTEMPT TO GET OUT OF BED, STATING SHE NEEDED TO DRIVE HOME BEFORE "IT GOT TOO DARK TO DRIVE" PATIENT NOT AWARE SHE HAD SURGERY DUE TO L HIP FX.
--- NOTE | 2020-09-12 07:09 | NUR ---
CHANGE OF SHIFT REPORT GIVEN TO DAY SHIFT NURSE, TUCKER CLIFFORD.
[2020-09-12 07:42] VITALS: BP 90/64; PULSE 91; TEMP 99.2
--- NOTE | 2020-09-12 09:00 | NUR ---
is moving about in bed and trying to get up, assisted back into bed and repositioned, left hip with swelling and echymosis, also has 1cm fluid filled area to proximal left hip, no dressing to proximal incision and gauze to lateral and is CD&I
--- NOTE | 2020-09-12 10:30 | NUR ---
moving around in bed and states she needs to go to the bathroom, with 2 assist out of bed and onto bedside commode, voided aprox 1000ml clear destiny urine, then assisted back to bed
[2020-09-12 10:45] LABS: COLLECTION METHOD CLEAN CATCH
[2020-09-12 10:53] LABS: MUCOUS Present /lpf; PH 5 (5-8); SQUAMOUS EPITHELIAL 0-2 /hpf; URINE APPEARANCE Clear; URINE BACTERIA Rare /hpf; URINE BILIRUBIN Negative (NEGATIVE); URINE BLOOD Negative (NEGATIVE); URINE COLOR Yellow; URINE GLUCOSE Negative (NEGATIVE); URINE KETONE Trace (NEGATIVE); URINE LEUKOCYTE ESTERASE Negative (NEGATIVE); URINE NITRATE Negative (NEGATIVE); URINE PROTEIN(semi-quant) Negative (NEGATIVE); URINE RBC 0-2 /hpf; URINE UROBILINOGEN Negative (NEGATIVE)
--- NOTE | 2020-09-12 11:04 | NUR ---
she is very sleepy and partially oriented but does not follow commands well, physical therapy in to work with patient
--- NOTE | 2020-09-12 11:06 | NUR ---
therapist is unable to have her follow any commands, she is talking about dogs and cats and trucks and just very disoriented
--- NOTE | 2020-09-12 12:05 | NUR ---
is more awake now and is able to tell me her name and most of her birthday, took med without difficulty
--- NOTE | 2020-09-12 12:27 | NUR ---
KRISTA Hurtado in to see patient, the patient is sitting up in bed and eating lunch independently
[2020-09-12 12:28] LABS: MEAN CORPUSCULAR HGB CONC 30 g/dl (33.0-37.0); MEAN PLATELET VOLUME 11.6 fl (7.4-10.4); PLATELET COUNT 216 K/mm3 (130-400); RED BLOOD COUNT 2.75 M/mm3 (4.10-5.30); REDCELL DISTRIBUTION WIDTH-CV 15.3 % (11.5-14.5)
[2020-09-12 12:29] LABS: ALBUMIN 3.1 gm/dL (3.5-5.0); BILIRUBIN,TOTAL 2.3 mg/dL (0.0-1.0); CALCIUM 8.4 mg/dL (8.4-10.2); CREATININE, serum 0.76 (0.52-1.25); POTASSIUM 4.6 mmol/L (3.4-5.0); TOTAL PROTEIN 6.1 gm/dL (6.4-8.2)
[2020-09-12 12:30] LABS: HEMATOCRIT 26.1 % (37.0-47.0); HEMOGLOBIN 7.8 g/dl (12.5-16.0); MEAN CELL VOLUME 95 fl (80.0-100.0); MEAN CORPUSCULAR HEMOGLOBIN 28 pg (27.0-31.0)
[2020-09-12 12:57] LABS: ANISOCYTOSIS 1+; BASOPHIL 2 % (0-2); LYMPHOCYTE 11 % (20.0-51.0); METAMYELOCYTE 2 % (0-0); NEUTROPHILS 78 % (42.0-75.2); PLATELET ESTIMATE NORMAL (NORMAL)
[2020-09-12 12:59] LABS: HYPOCHROMIA 3+
[2020-09-12 13:01] LABS: BURR CELLS 1+
--- NOTE | 2020-09-12 13:04 | NUR ---
occupational therapy in to work with patient
--- NOTE | 2020-09-12 14:30 | NUR ---
physical therapy in to work with patient, assisted her into WC and then she was able to manuever the WC and move her out into the [place], was awake and tolerated well
--- NOTE | 2020-09-12 17:42 | NUR ---
was trying to get out of bed and repositioned, c/o pain with movement, attempted to give tylenol and she spit them out and threw 1 of them on the floor, will let her rest and try again later
--- NOTE | 2020-09-12 18:05 | NUR ---
medicated with tylenol 650mg po crushed in mashed potatoes and gravy, she is calling out and angry
[2020-09-12 18:30] VITALS: BP 134/41; PULSE 94; TEMP 99.4
--- NOTE | 2020-09-12 18:31 | NUR ---
she his still very combative and hollering when attempt to do BP, over vital signs obtained but unable to obtain BP, VENESSA Milelr notified
--- NOTE | 2020-09-12 18:46 | NUR ---
was lying quietly in bed looking at TV and was able to obtain BP
--- NOTE | 2020-09-12 19:11 | NUR ---
RECEIVED CHANGE OF SHIFT REPORT FROM DAY SHIFT NURSE. BED ALARM WHEN PATIENT IN BED. PATIENT CONFUSED TO PLACE AND EVENT AND TIME. NOT COOPERATIVE WITH STAFF AT THIS TIME, VERBALIZING SHE NEEDS "TO GO AND CHECK THE MAIL"
--- NOTE | 2020-09-13 | NUR ---
SLEEPING, DOES NOT WAKE WHEN ROOM ENTERED BY STAFF. BREATHING NONLABORED AND EVEN. BED ALARM ON WHILE SLEEPING IN BED. NO INCONTINENCE OF URINE OR BOWEL AT THIS TIME.
[2020-09-13 05:49] VITALS: BP 129/47; PULSE 81; TEMP 97.4
--- NOTE | 2020-09-13 06:30 | NUR ---
Report received from VENESSA Boyd. Patient sleeping in bed. Call light and bedside table are within reach. Will continue to monitor throughout shift,
[2020-09-13 07:05] LABS: MEAN CELL VOLUME 91 fl (80.0-100.0); MEAN CORPUSCULAR HGB CONC 32 g/dl (33.0-37.0); RED BLOOD COUNT 2.42 M/mm3 (4.10-5.30); REDCELL DISTRIBUTION WIDTH-CV 15.2 % (11.5-14.5)
--- NOTE | 2020-09-13 07:06 | NUR ---
CHANGE OF SHIFT REPORT GIVEN TO DAY SHIFT NURSE, FRANCESCO CLIFFORD.
[2020-09-13 07:16] LABS: BILIRUBIN,TOTAL 1.4 mg/dL (0.0-1.0); CREATININE, serum 0.88 (0.52-1.25); POTASSIUM 3.7 mmol/L (3.4-5.0); TOTAL PROTEIN 5.8 gm/dL (6.4-8.2)
[2020-09-13 07:28] LABS: HEMATOCRIT 21.9 % (37.0-47.0); MEAN CORPUSCULAR HEMOGLOBIN 29 pg (27.0-31.0); PLATELET COUNT 360 K/mm3 (130-400)
[2020-09-13 08:36] LABS: BAND 4 % (0-10); LYMPHOCYTE 14 % (20.0-51.0); METAMYELOCYTE 1 % (0-0); NEUTROPHILS 73 % (42.0-75.2); SCHISTOCYTES 1+
[2020-09-13 08:37] LABS: PLATELET ESTIMATE NORMAL (NORMAL)
[2020-09-13 13:08] LABS: HEMATOCRIT 25.5 % (37.0-47.0)
--- NOTE | 2020-09-13 13:45 | NUR ---
Welcomed pt to Rehab unit. Explained the rehab process & goals. Complete SW assessment w/ pt. She is alert but not always oriented. She is able to communicate her needs & wants but when more confused she doesn't always call for assistance. She does wear glasses, has a slight issue w/ hearing, & has no teeth. She lives alone w/ her dog in a 2 story home w/ a basement. There are 2 steps to enter & a flight of steps to 2nd floor & basement. The laundry is in the basement & has bilateral handrails. Pt had difficulty w/ tell about the bathroom set up, so will talk w/ the daughter. Pt reports she walks w/ a s/cane & independent w/ her self care. She also reported doing her own cooking, housekeeping, laundry, shopping, drove, medication management & finance management. She has her own s/cane & r/walker. [facility]acy: [facility] & reports she has no concerns or issues w/ affording her medications. PCP: Dr. Lenz. She does have DPOA paperwork & will have to ask family for copy. Pt had no questions/concerns at this time about her rehab stay. SW will follow & assist w/ d/c planning.
--- NOTE | 2020-09-13 14:31 | NUR ---
Patient has completed all therapies today. Patient is in bed resting. Call light and bedside table are within reach. will continue to monitor throughout shift.
[2020-09-13 16:13] VITALS: BP 124/43; PULSE 83; TEMP 98.2
--- NOTE | 2020-09-13 16:13 | NUR ---
Was informed pt's daughter, Anita, was her visiting. Approached room & reviewed the team conference notes w/ her. She is very pleased to hear that the pt is doing better cognitively & functionally. Informed her the team will re-evaluate next 09/20/20.
--- NOTE | 2020-09-13 21:00 | NUR ---
PT ASSISTED TO BR. VOIDING. LT SUPERIOR HIP INCISION W/O DRSG. CUSTOM BOW MAKER NOTED BLEEDING FROM THIS INCISION. PLACED GAUZE AND TEGADERM. LOWER HIP WITH DRSG. NO BLEEDING NOTED. AMB TO BED. UNSTEADY BUT DOING WELL. COMPLIANT WITH CARES. BED ALARM SET. SCD'S ON TEDS OFF. CALL LIGHT IN REACH.
[2020-09-14 04:30] VITALS: BP 132/53; PULSE 81; TEMP 98.3
[2020-09-14 06:55] LABS: MEAN CELL VOLUME 91 fl (80.0-100.0); MEAN CORPUSCULAR HGB CONC 32 g/dl (33.0-37.0); MEAN PLATELET VOLUME 10.2 fl (7.4-10.4); PLATELET COUNT 416 K/mm3 (130-400); RED BLOOD COUNT 2.47 M/mm3 (4.10-5.30); REDCELL DISTRIBUTION WIDTH-CV 15.3 % (11.5-14.5)
[2020-09-14 06:59] LABS: HEMATOCRIT 22.5 % (37.0-47.0); HEMOGLOBIN 7.1 g/dl (12.5-16.0); MEAN CORPUSCULAR HEMOGLOBIN 29 pg (27.0-31.0)
[2020-09-14 08:02] LABS: BAND 1 % (0-10); LYMPHOCYTE 17 % (20.0-51.0); MYELOCYTE 1 % (0-0); NEUTROPHILS 79 % (42.0-75.2)
[2020-09-14 08:03] LABS: PLATELET ESTIMATE INCREASED (NORMAL)
--- NOTE | 2020-09-14 10:17 | NUR ---
Report received from VENESSA An. Patient is sleeping in bed. Call light and bedside table are within reach. Will continue to monitor patient throughout shift.
--- NOTE | 2020-09-14 13:15 | NUR ---
Admission QIM scores were reviewed by the team. Code of 88 chosen for oral hygiene was determined by team discussion to be the most usual performance before interventions for this patient during the assessment period. Code of 88 chosen for toileting transfers was determined by team discussion to be the most usual performance for this patient during the assessment period. Code of 2 for sit to stand was determined by team discussion to be the most usual performance for this patient during the assessment period.--Shauna White, PD
--- NOTE | 2020-09-14 14:30 | NUR ---
Patient has completed all therapies and is resting in bed. Call light and bedside table are within reach.
[2020-09-14 15:18] VITALS: BP 133/96; PULSE 83; TEMP 97.6
[2020-09-15 04:52] VITALS: BP 139/46; PULSE 85; TEMP 98.1
--- NOTE | 2020-09-15 08:00 | NUR ---
Patient layin maryn bed talking on the phone. A&Ox4. VSS. Denies pain and discomfort. SCD bilateral legs. Patient assisted with raising HOB. Wanted to eat breakfast in bed. Independent with feeds. Left leg incisionx2 CDI. No further needs expressed from the patient. Call light within reach. Bed alarm on
[2020-09-15 16:00] VITALS: BP 122/37; PULSE 80; TEMP 99.2
--- NOTE | 2020-09-15 17:34 | NUR ---
Nurse woke patient up to take scheduled medication. Patient A&Ox4. VSS. Left leg elevated on pillow and ice on left thigh. Patient repositioned for dinner. No further needs expressed from the patient. Call light within reach. Bed alarm on
--- NOTE | 2020-09-15 19:15 | NUR ---
RECEIVED CHANGE OF SHIFT REPORT FROM DAY SHIFT NURSE. SITTING UP IN BED WITH BED ALARM ON, CALL LIGHT WITHIN REACH. DENIES ANY NEEDS AT THIS TIME.
[2020-09-16] VITALS (7 sets, daily range): BP systolic 114–124; BP diastolic 37–53; PULSE 71–83; TEMP 97.3–99.1
--- NOTE | 2020-09-16 06:30 | NUR ---
Report received from VENESSA Boyd. Patient is sleeping in bed. Call light and bedside table are within reach. Will continue to monitor patient throughout shift.
--- NOTE | 2020-09-16 07:01 | NUR ---
CHANGE OF SHIFT REPORT GIVEN TO DAY SHIFT NURSE, FRANCESCO CLIFFORD. PATIENT DENIED CHEST PAIN/SOA/NAUSEA THROUGHOUT NIGHT. BED ALARM ON WHEN IN BED. DID NOT WAKE DURING NIGHT WHENEVER STAFF ENTERED ROOM. DENIED ANY LEFT HIP DISCOMFORT THROUGHOUT NIGHT.
[2020-09-16 07:11] LABS: MEAN CELL VOLUME 93 fl (80.0-100.0); MEAN CORPUSCULAR HGB CONC 31 g/dl (33.0-37.0); MEAN PLATELET VOLUME 10.3 fl (7.4-10.4); PLATELET COUNT 448 K/mm3 (130-400); RED BLOOD COUNT 2.38 M/mm3 (4.10-5.30); REDCELL DISTRIBUTION WIDTH-CV 15.7 % (11.5-14.5)
[2020-09-16 07:18] LABS: IRON,SERUM 33 ug/dL (35-150)
[2020-09-16 07:26] LABS: HEMATOCRIT 22.1 % (37.0-47.0); HEMOGLOBIN 6.9 g/dl (12.5-16.0); MEAN CORPUSCULAR HEMOGLOBIN 29 pg (27.0-31.0)
[2020-09-16 07:28] LABS: TOTAL IRON BINDING CAPACITY 224 ug/dL (265-497)
--- NOTE | 2020-09-16 12:40 | NUR ---
Patient is resting comfortably in recliner. All therapy for the day is complete.
--- NOTE | 2020-09-16 14:30 | NUR ---
Assisted primary nurse with starting of blood. Policy reivewed. Blood consent was obtained. 20G Iv started to LFA. Ns started at 30m/hr. Patietn understanding of sign and sypmtoms of transfusion reaction.
--- NOTE | 2020-09-16 14:40 | NUR ---
Patient blood fusion started. Reviewed with patient reaction while transfusing. Patient acknowledged she will let me know if she experiences any of the following smptoms. This nurse will stay with patient the first 15 minutes and continually monitor patient throughout infusion.
--- NOTE | 2020-09-16 17:39 | NUR ---
Blood transfusion ended. Patient tolerated infusion well. Total infused 310 ml
--- NOTE | 2020-09-16 19:10 | NUR ---
RECEIVED CHANGE OF SHIFT REPORT FROM DAY SHIFT NURSE.
--- NOTE | 2020-09-17 03:27 | NUR ---
PATIENT SLEEPING, DOES NOT WAKE WHEN ROOM ENTERED BY STAFF. REPORT LEFT LOWER THIGH PAIN WHEN WALKING, REFUSES OFFER OF PAIN MEDS, ALLOWED APPLICATION OF DICLOFENAC GEL TO AREA OF PAIN EARLIER IN SHIFT. DENIES CHEST PAIN/SOA/NAUSEA THROUGHOUT SHIFT AT THIS TIME. HAS NOT BEEN INCONTINENT THIS SHIFT AT THIS TIME. BED ALARM ON WHEN IN BED OR CHAIR ALARM ON WHEN UP IN CHAIR.
[2020-09-17 05:14] VITALS: BP 140/51; PULSE 84; TEMP 98.5
--- NOTE | 2020-09-17 05:29 | NUR ---
PATIENT DROPPED PROTONIX PILL, ANOTHER GIVEN.
--- NOTE | 2020-09-17 07:07 | NUR ---
Report received from VENESSA Boyd. Patient is sleeping in bed. Call light and bedside table are within reach. Will continue to monitor patient throughout shift.
--- NOTE | 2020-09-17 07:15 | NUR ---
CHANGE OF SHIFT REPORT GIVEN TO DAY SHIFT NURSE, FRANCESCO CLIFFORD.
--- NOTE | 2020-09-17 19:22 | NUR ---
RECEIVED CHANGE OF SHIFT REPORT FROM DAY SHIFT NURSE. BED ALARM ON WHEN IN BED WITH CALL LIGHT WITHIN REACH.
[2020-09-17 19:45] VITALS: BP 133/43; PULSE 78; TEMP 98.6
--- NOTE | 2020-09-18 03:33 | NUR ---
PATIENT SLEEPING, DOES NOT WAKE WHEN STAFF ENTERS ROOM DURING HOURLY NURSING ROUND BY THIS NURSE. OBSERVED BREATHING NONLABORED AND EVEN. BED ALARM ON WITH CALL LIGHT WITHIN PATIENT'S REACH.
[2020-09-18 05:25] VITALS: BP 131/49; PULSE 81; TEMP 97.5
--- NOTE | 2020-09-18 07:14 | NUR ---
CHANGE OF SHIFT REPORT GIVEN TO DAY SHIFT NURSE, FATIMAH CLIFFORD.
[2020-09-18 07:36] LABS: MEAN CELL VOLUME 94 fl (80.0-100.0); MEAN CORPUSCULAR HGB CONC 32 g/dl (33.0-37.0); MEAN PLATELET VOLUME 9.9 fl (7.4-10.4); PLATELET COUNT 501 K/mm3 (130-400); RED BLOOD COUNT 3.08 M/mm3 (4.10-5.30); REDCELL DISTRIBUTION WIDTH-CV 15.8 % (11.5-14.5)
[2020-09-18 07:37] LABS: HEMATOCRIT 28.9 % (37.0-47.0); HEMOGLOBIN 9.2 g/dl (12.5-16.0); MEAN CORPUSCULAR HEMOGLOBIN 30 pg (27.0-31.0)
[2020-09-18 07:45] LABS: CALCIUM 8.6 mg/dL (8.4-10.2); CREATININE, serum 0.97 (0.52-1.25); POTASSIUM 4.2 mmol/L (3.4-5.0)
[2020-09-18 08:25] LABS: ANISOCYTOSIS 1+; BASOPHIL 1 % (0-2); EOSINOPHIL 5 % (0-4); HYPOCHROMIA 2+; LYMPHOCYTE 24 % (20.0-51.0); NEUTROPHILS 68 % (42.0-75.2); PLATELET ESTIMATE INCREASED (NORMAL)
--- NOTE | 2020-09-18 10:27 | NUR ---
Follow-up visit; Patient states she is doing well and thanked Claims Associate for looking in on her and offering God's blessings.
--- NOTE | 2020-09-18 11:02 | NUR ---
Initial visit; Patient thanked Faceter for looking in on her and offering encouragement and God's blessings
[2020-09-18 17:07] VITALS: BP 118/54; PULSE 78; TEMP 98.6
--- NOTE | 2020-09-18 17:43 | NUR ---
Patient did well today. She stated therapy really wore her out today. Denies nausea. Has some pain to left knee, the cream and tylenol have been helping. She ate a good amount of her breakfast but did not eat much of lunch, she stated it did not taste good. She is eating her supper better. No problems with eating. No other changes at this time. Call light within reach.
--- NOTE | 2020-09-18 18:59 | NUR ---
RECEIVED CHANGE OF SHIFT REPORT FROM DAY SHIFT NURSE. BED ALARM ON WHILE RESTING IN BED, DAUGHTER AT BEDSIDE VISITING WITH PATIENT DENYING ANY NEEDS AT THIS TIME. CALL LIGHT WITHIN REACH OF PATIENT.
--- NOTE | 2020-09-19 02:06 | NUR ---
PATIENT SLEEPING, DOES NOT WAKE WHEN ROOM ENTERED BY STAFF DURING HOURLY NURSING ROUNDS. BREATHING NONLABORED AND EVEN. BED ALARM ON WITH CALL LIGHT WITHIN REACH.
[2020-09-19 05:15] VITALS: BP 116/51; PULSE 69; TEMP 97.9
--- NOTE | 2020-09-19 07:16 | NUR ---
CHANGE OF SHIFT REPORT GIVEN TO DAY SHIFT NURSE, CHONG CLIFFORD.
--- NOTE | 2020-09-19 11:16 | NUR ---
Patient is attending therapy at this time. Denied any questions.
--- NOTE | 2020-09-19 12:59 | NUR ---
Patient left with PT to go to gym. Awaiting her return.
[2020-09-19 16:00] VITALS: BP 151/55; PULSE 80; TEMP 97.8
--- NOTE | 2020-09-19 18:14 | NUR ---
Patient resting in bed at this time, call light in reach and bed alarm set. Dressing was changed to patient upperleft thigh. There was some old bloody drainage observed on old bandage. Applied new gauze and secured with tegaderm Patient tolerated diet well this shift. Patient's right heel was red and blanchable. Will continue to monitor.
--- NOTE | 2020-09-19 18:42 | NUR ---
RECEIVED CHANGE OF SHIFT REPORT FROM DAY SHIFT NURSE.
--- NOTE | 2020-09-20 01:37 | NUR ---
PATIENT SLEEPING, DOES NOT WAKE WHEN ROOM ENTERED BY STAFF ON HOURLY NURSING ROUNDS. BREATHING NONLABORED AND EVEN. BED ALARM ON WITH CALL LIGHT WITHIN REACH.
--- NOTE | 2020-09-20 01:38 | NUR ---
DENIES CHEST PAIN/SOA/NAUSEA SO FAR THIS SHIFT. UP NEEDED WITH STAFF ASSISTANCE WITH OBSERVED LIMP TO LLE WITH AMB DUE TO PAIN, TAKING TYLENOL FOR PAIN NEEDED WHEN ENCOURAGED BY STAFF TO TAKE MEDS FOR THE DISCOMFORT WITH MOVEMENT.
[2020-09-20 05:50] VITALS: BP 140/55; PULSE 76; TEMP 98.4
--- NOTE | 2020-09-20 06:52 | NUR ---
CHANGE OF SHIFT REPORT GIVEN TO DAY SHIFT NURSE, CHONG CLIFFORD.
--- NOTE | 2020-09-20 14:04 | NUR ---
Patient resting in bed, call light in reach and bed alarm set. Patient denies any questions at this time. Attended all her therapies this shift. Patient has heel protector on left heel and Ervin boots on in bed with heels elevated on pillows. Will continue to monitor.
--- NOTE | 2020-09-20 14:10 | NUR ---
Reviewed the team conference notes w/ the pt. She stated she understood & seemed to agree. Informed her of her d/c date for 09/26/20, & inquired about what her plan was. She told SW that it is up to her daughters. Conacted Anita, daughter, & reviewed the team conference notes. She stated she understood. Told her the team is concerned about her being at home alone w/ daughter agreed. She told SW that they would prefer pt go to [facility]. Told her that SW would make the referral & let her know.
[2020-09-20 16:26] VITALS: BP 137/48; PULSE 78; TEMP 98
--- NOTE | 2020-09-20 21:18 | NUR ---
Patient's left heel was hurting her more today. Upon assessment heel was red, blanchable, but very painful to the touch per patient. Heel protector was placed to that left heel. Patient was educated on the need to have it elevated at all times. She voiced understanding.
--- NOTE | 2020-09-20 22:05 | NUR ---
Assessment completed, alert and oriented. Sitting in bed, trying to put the heel protector. RN help her to put it in left foot. Patient left heel is blanchable red and painful to touch. Get her back to bed and bitaral heels elevated to pillows. No pain in the incision sites in left hip. Resting bed comfortably. Swallow her pills ok. No further complains noted. Bed alarm is on and call light is within reach. Continue to follow.
[2020-09-21 03:32] VITALS: BP 121/44; PULSE 62; TEMP 97.7
--- NOTE | 2020-09-21 06:30 | NUR ---
Report received from VENESSA Velasquez. Patient is sleeping in bed. Call light and bedside table are within reach. Will continue to monitor throughout shift.
[2020-09-21 07:47] LABS: HEMATOCRIT 30.5 % (37.0-47.0); HEMOGLOBIN 9.4 g/dl (12.5-16.0)
[2020-09-21 17:54] VITALS: BP 122/38; PULSE 76; TEMP 97.6
[2020-09-21 19:37] VITALS: BP 126/54; PULSE 77; TEMP 98.7
--- NOTE | 2020-09-21 22:16 | NUR ---
Pt has been ok. Pain rated 0/10. Vss. Will continue to monitor.
[2020-09-22 04:57] VITALS: BP 123/53; PULSE 74; TEMP 98.8
--- NOTE | 2020-09-22 06:30 | NUR ---
Received report from VENESSA Robison. Patient is sleeping in bed. Call light and bedside table are within reach. Will continue to monitor patient throughout shift.
--- NOTE | 2020-09-22 09:59 | NUR ---
Contacted [facility] & spoke w/ Marissa. Referral made for SNF PT/OT/ST w/ d/c next 09/26/20. Faxed referral information.
--- NOTE | 2020-09-22 14:30 | NUR ---
Patient is through with all therapies. Patient is resting in recliner. Will continue to monitor patient throughout shift.
[2020-09-22 17:35] VITALS: BP 123/47; PULSE 78; TEMP 99.1
--- NOTE | 2020-09-22 21:10 | NUR ---
Pt has been pleasantly confused. Pain rated 0/10. Vss. Will continue to redirect the pt.
[2020-09-23 04:57] VITALS: BP 123/57; PULSE 72; TEMP 97.4
[2020-09-23 15:10] VITALS: BP 150/71; PULSE 72; TEMP 98.7
--- NOTE | 2020-09-23 19:23 | NUR ---
Patient did not have therapies today, but she ambulated from her bed to recliner and back multiple times today as well as went on a long walk around Surgical area x 2. Patient tolerated diet well this shift. Patient's left heel has now developed into a Stage I wound that is approx. 1 cm round. Patient continues to have a heel cushion in place, bootie on in bed and elevated on pillows. Patient currently resting in bed, call light in reach and bed alarm set. Reported off to night nurse.
[2020-09-23 19:42] VITALS: BP 118/54; PULSE 73; TEMP 98.4
--- NOTE | 2020-09-23 21:14 | NUR ---
Pt has been been good.Curently sleeping. Pain rated 0/10. Vss. Will continue to monitor.
[2020-09-24 05:40] VITALS: BP 133/45; PULSE 73; TEMP 98.4
--- NOTE | 2020-09-24 12:47 | NUR ---
Patient was very confused this morning just able to tell me her name and date of this morning. She reported some stomach discomfort and did feel better after having a bowel movement. Patient tolerated breakfast well and is currently eating her lunch. Denies pain or questions at this time. Will continue to monitor.
[2020-09-24 15:11] VITALS: BP 127/52; PULSE 65; TEMP 97.5
--- NOTE | 2020-09-24 19:21 | NUR ---
Patient refused to get up and walk around this shift. She said this morning that her stomach wasn't feeling well. She refused her breakfast, ate her lunch and then only ate a small amount for supper. She pain to her left knee was managed with voltaran. Reported off to night nurse.
[2020-09-24 19:46] VITALS: BP 146/51; PULSE 67; TEMP 97.8
--- NOTE | 2020-09-24 22:20 | NUR ---
Pt has been in good spirit this evening. Pain rated 0/10. Bp is a little evelated. Will continue monitor the pt.
[2020-09-25 05:09] VITALS: BP 132/48; PULSE 72; TEMP 97.4
[2020-09-25 07:05] LABS: HEMATOCRIT 31.1 % (37.0-47.0); HEMOGLOBIN 9.9 g/dl (12.5-16.0)
--- NOTE | 2020-09-25 10:17 | NUR ---
Visited w/ pt & talked about d/c for tomorrow, 09/26/20, to [facility]. She did not have any questions or concerns about it. Reviewed the Medicare Rights form & pt signed it. Contacted Marissa at [facility]. Inquired if they were good w/ accepting pt, which she stated they were. Inquired about transportation & have it arranged to pick pt up at 12:30-1:00 pm on 09/26/20. Contacted pt's daughter, Anita. Informed her that [facility] has accepted & have scheduled for transportation between 12:30-1:00 pm on 09/26/20. She thanked CHRISTIE for the information.
[2020-09-25] MEDS ORDERED: ELIQUIS 5MG PO (11:49)
[2020-09-25] MEDS ORDERED: VOLTAREN GEL 1%1 TU TP (11:49)
[2020-09-25] MEDS ORDERED: MIRALAX PA17 GM/Dose PO (11:50)
[2020-09-25] MEDS ORDERED: METAMUCIL3.4 GM/DOS PO (11:50)
[2020-09-25] MEDS ORDERED: SYSTANE 0.3-0.1 EACH OP (11:50)
[2020-09-25] MEDS ORDERED: TYLENOL 325MG325 MG PO (11:50)
[2020-09-25] MEDS ORDERED: SEROQUEL 2525 MG/TAB PO (11:50)
[2020-09-25] MEDS ORDERED: MELATIN 3 MG-11 TAB PO (11:51)
[2020-09-25] MEDS ORDERED: DULCOLAX S10 MG/SUPP RC (11:51)
[2020-09-25] MEDS ORDERED: PACERONE400 MG PO (11:55)
[2020-09-25] MEDS ORDERED: FERROUS SU325 MG/TAB PO (11:58)
--- NOTE | 2020-09-25 12:30 | NUR ---
Patient is done will all therapies today and is resting in bed. Call light and bedside table are within reach.
[2020-09-25 17:18] VITALS: BP 130/47; PULSE 70; TEMP 97.5
[2020-09-25 19:15] VITALS: BP 139/91; PULSE 75; TEMP 97.7
--- NOTE | 2020-09-25 22:26 | NUR ---
Pt has been more alert and oriented this evening. Pain rated 0/10. vss.Will continue to monitor the pt.
[2020-09-26 05:01] VITALS: BP 130/55; PULSE 71; TEMP 97.8
--- NOTE | 2020-09-26 09:45 | NUR ---
Faxed d/c orders to [facility].
--- NOTE | 2020-09-26 10:07 | NUR ---
Visited w/ pt about d/c plans for today, 09/26/20. She stated she is ready & had no questions or concerns. Told her that [facility] will come to get her around 12:30-1:00 & that her daughter, Anita, plans on being here.
--- NOTE | 2020-09-26 10:34 | NUR ---
Patient was independent on all her grooming this morning. Patient was a SBA with walking with walker to the bathroom. She was independent with wiping herself and pulling pants up and down. She was set up for putting on her top. Patient was feeling a little achy so was given prn Tylenol this morning. Will continue to monitor.
--- NOTE | 2020-09-26 12:17 | NUR ---
Gave report to [facility] nurse, Marissa. Faxed discharge orders to nurse. Received call that the [facility] is on its way to come berry picker patient. Patient denies any questions at this time.
--- NOTE | 2020-09-26 12:21 | NUR ---
Daughter stopped by to see mother prior to her being discharged to [facility]. She reported that patient had received her COVID 19 on 05/19/20 and it was Alexander.
--- NOTE | 2020-09-26 12:42 | NUR ---
Patient Health Summary, Discharge Summary and Home Meds were printed and sent with [facility] to be delivered to the nurses station at the [facility]. Belongings were gathered by RN/Debby including phone guest service supervisor, phone, dirty clothes from [facility] and [facility]. other items including glasses and voltaren ointment. Patient was transported via wheelchair and to [facility], was seatbelted for ride to SNF. She denied any questions.
--- NOTE | 2020-09-26 13:32 | NUR ---
Discharge QIM scores were reviewed by the team. Code of 6 chosen for toileting transfers was determined by team discussion to be the most usual performance for this patient during the assessment period. Code of 6 for chair/bed to chair transfers was determined by team discussion to be the most usual performance for this patient during the assessment period.--Shauna White, PD
== END 2020-09-26 12:45 | DRG 536 ==
PROVIDERS: Physician Assistant; ADMIT Internal Medicine
DX: S72.142A Displaced intertrochanteric fracture of left femur, initial encounter for closed fracture (principal); I50.30 Unspecified diastolic (congestive) heart failure; R44.3 Hallucinations, unspecified; C44.91 Basal cell carcinoma of skin, unspecified; I48.0 Paroxysmal atrial fibrillation; I95.9 Hypotension, unspecified; I11.0 Hypertensive heart disease with heart failure; K56.41 Fecal impaction; K21.9 Gastro-esophageal reflux disease without esophagitis; F03.90 Unspecified dementia, unspecified severity, without behavioral disturbance, psychotic disturbance, mood disturbance, and anxiety; D64.9 Anemia, unspecified; E78.5 Hyperlipidemia, unspecified; D72.829 Elevated white blood cell count, unspecified; R41.0 Disorientation, unspecified; Z85.3 Personal history of malignant neoplasm of breast; Z92.21 Personal history of antineoplastic chemotherapy
CPT/HCPCS: 99222-AI; 99231-AI; 99232-AI; 99233-AI; 99239; J7050; P9016

== ENCOUNTER 2020-12-13 18:20 | Inpatient (IN) | payer MEDICARE, BC ==
[~2020-12-13] VITALS: Ht 162.6 cm; Wt 65.9 kg
[~2020-12-13 18:20] MED LIST changes: +DULCOLAX S10 MG/SUPP RC; +ELIQUIS 5MG PO; +FERROUS SU325 MG/TAB PO; +MELATIN 3 MG-11 TAB PO; +METAMUCIL3.4 GM/DOS PO; +MIRALAX PA17 GM/Dose PO; +SEROQUEL 2525 MG/TAB PO; +SYSTANE 0.3-0.1 EACH OP; +VOLTAREN GEL 1%1 TU TP
[2020-12-13 18:59] LABS: BASO % 0.3 % (0.0-2.0); EOS # 0.2 K/mm3 (0.0-0.7); EOS % 2.3 % (0-4.0); GRAN # 4.6 K/mm3 (1.4-6.5); GRAN % 64.4 % (42.2-75.2); HEMATOCRIT 30.5 % (37.0-47.0); HEMOGLOBIN 9.5 g/dl (12.5-16.0); LYMPH # 1.5 K/mm3 (1.2-3.4); LYMPH % 21.1 % (20.0-51.0); MEAN CELL VOLUME 90 fl (80.0-100.0); MEAN CORPUSCULAR HEMOGLOBIN 28 pg (27.0-31.0); MEAN CORPUSCULAR HGB CONC 31 g/dl (33.0-37.0); MEAN PLATELET VOLUME 11.3 fl (7.4-10.4); MONO # 0.8 K/mm3 (0.1-0.6); MONO % 11.3 % (1.7-9.3); PLATELET COUNT 315 K/mm3 (130-400); RED BLOOD COUNT 3.38 M/mm3 (4.10-5.30); REDCELL DISTRIBUTION WIDTH-CV 14.9 % (11.5-14.5)
[2020-12-13 19:17] LABS: ALBUMIN 2.8 gm/dL (3.4-4.8); BILIRUBIN,TOTAL 0.3 mg/dL (0.2-1.2); CALCIUM 9.4 mg/dL (8.4-10.2); CREATININE, serum 1.04 mg/dL (0.57-1.11); POTASSIUM 4.3 mmol/L (3.5-4.5); TOTAL PROTEIN 6.2 gm/dL (6.2-8.1)
[2020-12-13 19:37] LABS: TROPONIN-I 0.033 ng/mL (0.00-0.033); TSH w REFLEX 15.415 uIU/mL (0.350-4.940)
[2020-12-13 19:50] LABS: PROTHROMBIN TIME 11.6 SECONDS (9.7-12.8)
[2020-12-13 20:02] LABS: BUDDING YEAST Present /hpf; MUCOUS Present /lpf; PH 5 (5-8); SQUAMOUS EPITHELIAL None Seen /hpf; URINE APPEARANCE Cloudy; URINE BACTERIA Many /hpf; URINE BILIRUBIN Negative (NEGATIVE); URINE BLOOD 3+ (NEGATIVE); URINE COLOR Amber; URINE GLUCOSE Negative (NEGATIVE); URINE KETONE Negative (NEGATIVE); URINE LEUKOCYTE ESTERASE 3+ (NEGATIVE); URINE NITRATE Negative (NEGATIVE); URINE PROTEIN(semi-quant) 2+ (NEGATIVE); URINE RBC >50 /hpf; URINE UROBILINOGEN Negative (NEGATIVE)
[2020-12-13 20:20] LABS: ARTERIAL BLD GAS O2 SATURATION 95.6 % (92-100); ARTERIAL BLOOD GAS BASE EXCESS -0.5 (-2-2); ARTERIAL BLOOD GAS HCO3 23.9 meq/L (22-26); ARTERIAL BLOOD GAS PCO2 37.3 mmHg (35-45); ARTERIAL BLOOD GAS PO2 85.4 mmHg (80-100); ARTERIAL BLOOD GAS pH 7.42 (7.35-7.45)
--- NOTE | 2020-12-13 21:39 | NUR ---
Arrived to unit, awake, alert, oriented x 3, weakness noted, under warm blankets, VS stable, Stage 2 noted to coccyx- mepilex applied, BLE edema noted +1- elevated ble, patient updated on plan of care.
[2020-12-13] MEDS ORDERED: MIRALAX PA17 GM/Dose PO (21:48)
[2020-12-13] MEDS ORDERED: NAMENDA5 MG PO (21:49)
[2020-12-13] MEDS ORDERED: PLAVIX 75MG TAB75 MG PO (21:50)
[2020-12-13] MEDS ORDERED: RISPERDAL 0.20.25 MG PO (21:51)
[2020-12-13] MEDS ORDERED: ARICEPT 5MG PO (21:52)
[2020-12-13] MEDS ORDERED: ASPIRIN E.C. 8181 MG PO (21:53)
[2020-12-13] MEDS ORDERED: NAMZARIC1 ECC PO (21:55)
--- NOTE | 2020-12-13 23:34 | NUR ---
Patient hard to respond, call placed to Kae Ren, at bedside, rectal temp 94.1, SPO2 @ 80% O2 added 6L per Mask- recoved to 100% decreased to 3L per Mask, labs obtained, B/P as charted, Emanuelsion called family to verify status and request them to come to bedside, patient remains with change to mental status, slow to respond, will transfer to ICU bed 2.
[2020-12-13 23:50] LABS: ARTERIAL BLOOD GAS PCO2 38.3 mmHg (35-45); ARTERIAL BLOOD GAS pH 7.42 (7.35-7.45)
--- NOTE | 2020-12-13 23:50 | NUR ---
Vancomycin Initial Dosing Pharmacy Note Ordering provider: Lyly Oliveira DO Indication/duration: PNA/UTI X 7 days. Relevant comorbidities: HTN LABS: WBC= 7.1 SCr = 1.04 Recommendation: Will draw troughs and follow levels. Loading dose: 1.75 grams Maintenance dose: 1.25 grams every 24 hours Trough goal: 15-20 ug/mL
[2020-12-13 23:51] LABS: ARTERIAL BLD GAS O2 SATURATION 98.8 % (92-100); ARTERIAL BLOOD GAS BASE EXCESS 0.2 (-2-2); ARTERIAL BLOOD GAS HCO3 24.5 meq/L (22-26); ARTERIAL BLOOD GAS PO2 138.2 mmHg (80-100)
[2020-12-14] VITALS (467 sets, daily range): BP systolic 97–135; BP diastolic 41–62; PULSE 67–79; TEMP 95.2–98.8; O2SAT 68–100
[2020-12-14] MEDS ORDERED: ELIQUIS 5MG PO (00:01)
[2020-12-14] MEDS ORDERED: DULCOLAX S10 MG/SUPP RC (00:08)
[2020-12-14] MEDS ORDERED: GOOD SENSE TUS120 ML PO (00:09)
[2020-12-14] MEDS ORDERED: TESSALON P100 MG/CAP PO (00:14)
--- NOTE | 2020-12-14 00:25 | NUR ---
PT TO ICU 2 BY BED. TRANSFERRED WITH ASSIST OF 4. BP STABLE. TEMP LOW, RECTAL TEMP PROBE PLACED AND IDRIS HUGGER ON. PT ALERT TO PERSON, BIRTHDAY, AND YEAR. KEVEN ALAMO AT BEDSIDE.
[2020-12-14] MEDS ORDERED: SYSTANE 0.4%-0.1 SOL OP (01:44)
[2020-12-14] MEDS ORDERED: METAMUCIL3.4 GM/DOS PO (01:54)
[2020-12-14 05:40] LABS: BASO % 0.5 % (0.0-2.0); EOS # 0.1 K/mm3 (0.0-0.7); EOS % 1.6 % (0-4.0); GRAN # 4.7 K/mm3 (1.4-6.5); GRAN % 77.1 % (42.2-75.2); LYMPH # 0.6 K/mm3 (1.2-3.4); LYMPH % 10.5 % (20.0-51.0); MEAN CELL VOLUME 92 fl (80.0-100.0); MEAN CORPUSCULAR HGB CONC 30 g/dl (33.0-37.0); MEAN PLATELET VOLUME 11.4 fl (7.4-10.4); MONO # 0.6 K/mm3 (0.1-0.6); MONO % 9.8 % (1.7-9.3); PLATELET COUNT 248 K/mm3 (130-400); RED BLOOD COUNT 2.93 M/mm3 (4.10-5.30); REDCELL DISTRIBUTION WIDTH-CV 15.2 % (11.5-14.5)
[2020-12-14 05:42] LABS: HEMOGLOBIN 8.2 g/dl (12.5-16.0); MEAN CORPUSCULAR HEMOGLOBIN 28 pg (27.0-31.0)
[2020-12-14 06:01] LABS: CALCIUM 8.7 mg/dL (8.4-10.2); CREATININE, serum 0.97 mg/dL (0.57-1.11); POTASSIUM 4.2 mmol/L (3.5-4.5)
--- NOTE | 2020-12-14 06:31 | NUR ---
PT RESTING IN BED. IDRIS HUGGER OFF AND TEMP MAINTAINING. BP 100'S/40'S. VSS. BHANDARI PATENT AND DRAINING WITH GOOD OUTPUT BUT CLOUDY FOUL SMELLING HEMATURIA.
--- NOTE | 2020-12-14 07:30 | NUR ---
RECEIVED REPORT FROM VENESSA KEN. PT RESTING IN BED ON 3L VIA NC. VSS. CALL LIGHT WIHTIN REACH. FC PATENT AND DRAINING TO GRAVITY, NOTED RED TINGE URINE IN COLLECTION BAG. WILL MONITOR CLOSELY.
[2020-12-14 10:29] LABS: COLLECTION METHOD CATHETER
--- NOTE | 2020-12-14 13:45 | NUR ---
CHRISTIE unable to meet with patient as she is intubated. This worker attempted to contact patient's daughter, Romana Dean ([phone]) but had to leave a voicemail. Patient's PCP is listed as Dr. Bill Lenz. SW will follow up to complete intake.
--- NOTE | 2020-12-14 14:55 | NUR ---
REPORT GIVEN TO VENESSA WALKER. PT TRANSFERED VIA TO [facility]. ALL PERSONAL BELONGINGS SENT WITH PT. PT ON RA.
--- NOTE | 2020-12-14 16:52 | NUR ---
PT RECEIVED ON FLOOR. ALLERGIES REVIEWED. VITAL SIGNS OBTAINED. MED RECONCILLIATION TO BE REVIEWED WITH PAPERWORK IN CHART PROVIDED BY PRISON FACILITY. PT ALERT, ORIENTED TO PERSON AND PLACE. DISORIENTED TO TIME AND SITUATION. PT CLEAR LUNG SOUNDS. PT HAS REDDENED COCCYX, BLANCHABLE. PT HAS BRUISING NOTED ON BILATERAL UPPER EXTREMITIES. PT HAS BILATERAL EDEMA IN UPPER AND LOWER EXTREMITIES. PT CALL LIGHT IN REACH. PT HAS HAD DINNER.
--- NOTE | 2020-12-14 17:59 | NUR ---
MED REC COMPLETED AT THIS TIME
--- NOTE | 2020-12-14 18:17 | NUR ---
PT PLEASANT, NO SIGNIFICANT CHANGES NOTED SINCE ADMISSION TO UNIT. WILL PASS ON TO SENIOR SUPPORT ENGINEER.
--- NOTE | 2020-12-14 18:47 | NUR ---
CALL RECEIVED FROM [facility], HUGO GTZ. UPDATE GIVEN. HUGO MENTIONED CONCERN WITH D-DIMER PRIOR TO COMING TO HOSPITAL WILL PASS ON TO SPRINKLER INSPECTOR.
--- NOTE | 2020-12-14 21:16 | NUR ---
ALERT AND OX2. DENIES SOA, CHEST PAIN OR DIZZY. UNSURE WHY SHE IS HERE OR WHAT TO DO NEXT. REORIENTATED TO SITUATION. BED ALARM ON . CALL LIGHT WITH IN REACH. BHANDARI CATH TO DD, TEA COLOR URINE. IVS FLUSHED. NEEDS MET.
[2020-12-15 00:04] VITALS: BP 124/45; PULSE 71; TEMP 97.8
--- NOTE | 2020-12-15 02:18 | NUR ---
PT YELLING OUT TO GET THE DOG FROM THE BACK PORCH FOR OVER A HOUR W NO LUCK ON REDIRECTION. DISTURBING OTHER PATIENTS WITH YELLING AND AGITATION. KEVEN VELASCO CALLED. WILL CHECK EKG AND GIVE SEROQUIL. HOWEVER PT IS REFUSING TO TAKE ANY PILLS UNTIL THE DOG IS BROUGHT THE HER.
[2020-12-15 04:24] VITALS: BP 108/53; PULSE 68; TEMP 97.6
--- NOTE | 2020-12-15 05:10 | NUR ---
PT HAS BEEN AWAKE ALL NIGHT LONG. STOPPED YELLING OUT AFTER APPROX 2 HRS ABOUT A DOG. AM MEDS GIVEN. BED ALARM ON. NEEDS MET.
[2020-12-15 07:06] LABS: BASO % 0.4 % (0.0-2.0); EOS # 0.1 K/mm3 (0.0-0.7); GRAN # 5.8 K/mm3 (1.4-6.5); GRAN % 72.6 % (42.2-75.2); LYMPH # 1.2 K/mm3 (1.2-3.4); LYMPH % 14.8 % (20.0-51.0); MEAN CELL VOLUME 90 fl (80.0-100.0); MEAN CORPUSCULAR HGB CONC 31 g/dl (33.0-37.0); MEAN PLATELET VOLUME 11.9 fl (7.4-10.4); MONO # 0.9 K/mm3 (0.1-0.6); MONO % 10.7 % (1.7-9.3); PLATELET COUNT 250 K/mm3 (130-400); REDCELL DISTRIBUTION WIDTH-CV 15.3 % (11.5-14.5)
[2020-12-15 07:07] LABS: HEMATOCRIT 27.8 % (37.0-47.0); HEMOGLOBIN 8.7 g/dl (12.5-16.0); MEAN CORPUSCULAR HEMOGLOBIN 28 pg (27.0-31.0)
[2020-12-15 07:23] LABS: CALCIUM 8.8 mg/dL (8.4-10.2); CREATININE, serum 0.93 mg/dL (0.57-1.11)
[2020-12-15 07:53] VITALS: BP 137/58; PULSE 72; TEMP 97.5
--- NOTE | 2020-12-15 09:58 | NUR ---
PT ATTEMPTING TO GET OUT OF BED MULTIPLE TIMES, PT AGITATED AND CURSING AT STAFF. DR. RETANA NOTIFIED AND ORDER FOR 0.5MG ATIVAN ORDERED AND GIVEN.
--- NOTE | 2020-12-15 13:24 | NUR ---
The patient remains on IV antibiotics. Awaiting cultures. CHRISTIE contacted and faxed updates to Marissa at [facility]. Marissa reports that they are not able to take on the weekend. CHRISTIE updated the patient's PA. *Discharge plan: [facility]*
--- NOTE | 2020-12-15 14:27 | NUR ---
Primary nurse was assisted with [id number] patient care by [employer] student Alvarez Feliz and [employer] instructor Megan Nicholas MSN, RN
--- NOTE | 2020-12-15 16:00 | NUR ---
Patient very confused earlier, attempting to get out of bed, pulling off her telemetry and pulled her camargo out. Hospitalist was spoken to and it was decided that telemetry could be discontinued, and the camargo could be discontinued as well. Purewik was placed for incontinence.
[2020-12-15 20:19] VITALS: BP 142/56; PULSE 73; TEMP 97.3
--- NOTE | 2020-12-15 22:18 | NUR ---
ALERT AND OX2. DENIES SOA, CHEST PAIN OR DIZZY. CONFUSION NOTED PT PULLED OUT BHANDARI CATH TODAY. RT/LT FA INTACT. BED CHANGED AND GOWN. PM MEDS GIVEN. BED ALARM ON. CALL LIGHT WI REACH. TV ON FOR DISTRACTION.
[2020-12-16 00:09] VITALS: BP 125/95; PULSE 68; TEMP 96.5
[2020-12-16 03:28] VITALS: BP 114/76; PULSE 80; TEMP 97.7
--- NOTE | 2020-12-16 05:26 | NUR ---
RESTING THROUGH THE NIGHT WITHOUT INCIDENT. ONLY 1 ATTEMPT TO GET UP AROUND MIDNIGHT AFTER USING COMMODE AND CLEANING UP PT WENT TO SLEEP. NOT DISTURBED. BED ALARM REMAINS ON. CALL LIGHT WI REACH IN EYES VIEW OF NURSE STATION.
[2020-12-16 07:50] VITALS: BP 117/44; PULSE 55; TEMP 97.4
[2020-12-16 09:21] LABS: BASO % 0.3 % (0.0-2.0); EOS # 0.1 K/mm3 (0.0-0.7); EOS % 1.7 % (0-4.0); GRAN # 5.2 K/mm3 (1.4-6.5); GRAN % 72.8 % (42.2-75.2); LYMPH # 0.8 K/mm3 (1.2-3.4); LYMPH % 11.7 % (20.0-51.0); MEAN CELL VOLUME 88 fl (80.0-100.0); MEAN CORPUSCULAR HGB CONC 32 g/dl (33.0-37.0); MEAN PLATELET VOLUME 11.7 fl (7.4-10.4); MONO # 0.9 K/mm3 (0.1-0.6); MONO % 12.8 % (1.7-9.3); PLATELET COUNT 235 K/mm3 (130-400); RED BLOOD COUNT 3.24 M/mm3 (4.10-5.30)
[2020-12-16 09:28] LABS: HEMATOCRIT 28.5 % (37.0-47.0); MEAN CORPUSCULAR HEMOGLOBIN 28 pg (27.0-31.0)
[2020-12-16 09:44] LABS: CALCIUM 9.3 mg/dL (8.4-10.2); CREATININE, serum 0.78 mg/dL (0.57-1.11); POTASSIUM 3.6 mmol/L (3.5-4.5)
[2020-12-16 12:06] VITALS: BP 139/55; PULSE 59; TEMP 97.7
--- NOTE | 2020-12-16 13:17 | NUR ---
Patient remains pleasantly confused. Currently sitting in the recliner. Still tries to get up on her own. Patient very weak and required max assist to get from the bed to the recliner.
[2020-12-16 15:20] VITALS: BP 114/75; PULSE 61; TEMP 97.8
--- NOTE | 2020-12-16 20:54 | NUR ---
ALERT AND OX2. DENIES SOA, CHEST PAIN OR DIZZY. PM MEDS GIVEN. BED ALARM ON. CALL LIGHT WI REACH. PT ATE ALL OF DINNER. IVS FLUSHED. DRY AT THIS TIME. LIGHTS DOWN, ENC REST. NEEDS MET.
[2020-12-16 21:15] VITALS: BP 109/44; PULSE 56; TEMP 97.3
[2020-12-17 05:16] VITALS: BP 99/43; PULSE 73; TEMP 97.5
--- NOTE | 2020-12-17 05:17 | NUR ---
PT RESTED THROUGH THE NIGHT WITHOUT INCIDENT. VS AND WEIGHT TAKEN THIS AM. CHECK AND CHANGE WAS DRY. PT RESTING QUIELTY WITH EYES CLOSED AFTER RESP EVEN AND UNLABORED.
[2020-12-17 06:37] LABS: BASO % 0.2 % (0.0-2.0); EOS # 0.1 K/mm3 (0.0-0.7); EOS % 2.3 % (0-4.0); GRAN # 4.1 K/mm3 (1.4-6.5); GRAN % 66.3 % (42.2-75.2); LYMPH # 1.1 K/mm3 (1.2-3.4); LYMPH % 17.7 % (20.0-51.0); MEAN CELL VOLUME 92 fl (80.0-100.0); MEAN CORPUSCULAR HGB CONC 31 g/dl (33.0-37.0); MEAN PLATELET VOLUME 11.8 fl (7.4-10.4); MONO # 0.8 K/mm3 (0.1-0.6); MONO % 12.5 % (1.7-9.3); PLATELET COUNT 221 K/mm3 (130-400); RED BLOOD COUNT 3.05 M/mm3 (4.10-5.30); REDCELL DISTRIBUTION WIDTH-CV 15.2 % (11.5-14.5)
[2020-12-17 06:42] LABS: HEMOGLOBIN 8.5 g/dl (12.5-16.0); MEAN CORPUSCULAR HEMOGLOBIN 28 pg (27.0-31.0)
[2020-12-17 06:43] LABS: HEMATOCRIT 27.9 % (37.0-47.0)
[2020-12-17 06:55] LABS: ALBUMIN 2.4 gm/dL (3.4-4.8); CALCIUM 8.6 mg/dL (8.4-10.2); CREATININE, serum 0.87 mg/dL (0.57-1.11); MAGNESIUM 1.8 mg/dL (1.6-2.6); PHOSPHOROUS 2.8 mg/dL (2.3-4.7); POTASSIUM 3.8 mmol/L (3.5-4.5)
--- NOTE | 2020-12-17 08:25 | NUR ---
Pt sleeping upon entry, easily awakened, auditary hallucination (dog barking) no C/O pain at this time. Shifdt assessment complete, left Pt call light in reach, bed in lowest position.
[2020-12-17 08:45] VITALS: BP 115/41; PULSE 76; TEMP 97.9
[2020-12-17 11:36] VITALS: BP 97/37; PULSE 65; TEMP 98
[2020-12-17 16:20] VITALS: BP 100/45; PULSE 63; TEMP 97.9
[2020-12-17 19:32] VITALS: BP 126/61; PULSE 63; TEMP 97.6
[2020-12-17 23:20] VITALS: BP 119/43; PULSE 66; TEMP 97.6
[2020-12-18 03:35] VITALS: BP 125/76; PULSE 68; TEMP 97.8
[2020-12-18 06:48] LABS: CALCIUM 8.6 mg/dL (8.4-10.2); CREATININE, serum 0.84 mg/dL (0.57-1.11); POTASSIUM 3.9 mmol/L (3.5-4.5)
[2020-12-18 07:28] VITALS: BP 128/43; PULSE 67; TEMP 97.7
[2020-12-18] MEDS ORDERED: OMNICEF 300MG300 MG PO (07:31)
--- NOTE | 2020-12-18 09:39 | NUR ---
Pt awake uppon entry, no C/O pain at this time. Shift assessment complete, left Pt call light in reach, bed in lowest position.
--- NOTE | 2020-12-18 10:35 | NUR ---
The patient is to discharge today, 12/18, back to [facility] for long-term care. CHRISTIE informed the patient and her RN of the time. They were both agreeable to the time. CHRISTIE attempted to contact the patient's daughter, Anita, multiple times to update of d/c and transport time. Her phone goes straight to voicemail and her mailbox is full, so CHRISTIE is unable to leave a message. CHRISTIE attempted to contact the patient's other daughter, Romana, multiple times to update. CHRISTIE left her two voicemails. CHRISTIE updated Marissa at [facility] of how CHRISTIE has been unable to get ahold of the daughters. Marissa reports that she has tried to contact the daughters too. No additional needs at this time.
[2020-12-18 10:57] VITALS: BP 128/43; PULSE 67; TEMP 97.7
[2020-12-18 11:09] VITALS: BP 126/68; PULSE 74; TEMP 97.6
--- NOTE | 2020-12-18 12:10 | NUR ---
Pt transferred to [facility]. Pt transported via their transportation asset.
== END 2020-12-18 12:30 | DRG 871 ==
LOC: COL.ER 18:20 → ICU 20:11 → MEDICAL 20:11 → ICU 12-14 → MEDICAL 12-14 01:00
PROVIDERS: Emergency Medicine; Internal Medicine; Nurse Practitioner Family; Physician Assistant; ADMIT Internal Medicine
DX: A41.9 Sepsis, unspecified organism (principal); J96.01 Acute respiratory failure with hypoxia; J18.9 Pneumonia, unspecified organism; G93.41 Metabolic encephalopathy; I50.32 Chronic diastolic (congestive) heart failure; N39.0 Urinary tract infection, site not specified; F03.91 Unspecified dementia, unspecified severity, with behavioral disturbance; F05 Delirium due to known physiological condition; I11.0 Hypertensive heart disease with heart failure; Z66 Do not resuscitate; I48.91 Unspecified atrial fibrillation; D64.9 Anemia, unspecified; E78.5 Hyperlipidemia, unspecified; I48.0 Paroxysmal atrial fibrillation; R65.20 Severe sepsis without septic shock; E03.8 Other specified hypothyroidism; I73.9 Peripheral vascular disease, unspecified; B96.20 Unspecified Escherichia coli [E. coli] as the cause of diseases classified elsewhere; Z79.01 Long term (current) use of anticoagulants; Z85.3 Personal history of malignant neoplasm of breast; Z79.82 Long term (current) use of aspirin; Z20.822 Contact with and (suspected) exposure to COVID-19
CPT/HCPCS: 99223-AI; 99232-AI; 99239; A9284; J0692; J0696; J1650; J2060; J3370; J3475; J7030; J7040

== ENCOUNTER 2020-12-20 02:47 | Inpatient (IN) | payer MEDICARE, BC ==
[~2020-12-20] VITALS: Ht 167.6 cm; Wt 65.9 kg
[~2020-12-20 02:47] MED LIST changes: +ARICEPT 5MG PO; +ASPIRIN E.C. 8181 MG PO; +GOOD SENSE TUS120 ML PO; +NAMENDA5 MG PO; +NAMZARIC1 ECC PO; +OMNICEF 300MG300 MG PO; +PLAVIX 75MG TAB75 MG PO; +RISPERDAL 0.20.25 MG PO; +SYSTANE 0.4%-0.1 SOL OP; +TESSALON P100 MG/CAP PO
[2020-12-20 03:04] LABS: BASO % 0.3 % (0.0-2.0); EOS # 0.1 K/mm3 (0.0-0.7); EOS % 0.5 % (0-4.0); GRAN # 8.3 K/mm3 (1.4-6.5); GRAN % 80.7 % (42.2-75.2); LYMPH # 0.8 K/mm3 (1.2-3.4); LYMPH % 7.7 % (20.0-51.0); MEAN CELL VOLUME 90 fl (80.0-100.0); MEAN CORPUSCULAR HGB CONC 31 g/dl (33.0-37.0); MEAN PLATELET VOLUME 11.9 fl (7.4-10.4); PLATELET COUNT 207 K/mm3 (130-400); RED BLOOD COUNT 2.89 M/mm3 (4.10-5.30); REDCELL DISTRIBUTION WIDTH-CV 15.5 % (11.5-14.5)
[2020-12-20 03:07] LABS: HEMOGLOBIN 8.1 g/dl (12.5-16.0); MEAN CORPUSCULAR HEMOGLOBIN 28 pg (27.0-31.0)
[2020-12-20 03:39] LABS: ALBUMIN 2.9 gm/dL (3.4-4.8); BILIRUBIN,TOTAL 0.4 mg/dL (0.2-1.2); CALCIUM 9.5 mg/dL (8.4-10.2); CREATININE, serum 0.82 mg/dL (0.57-1.11)
--- NOTE | 2020-12-20 06:10 | NUR ---
Pt. arrived to the floor. Pt. transfered with 2 assist. Pt. denies pain at this time. Bed alarm on, call light within reach.
[2020-12-20 06:44] LABS: INR 1.1 (0.8-3.0); PROTHROMBIN TIME 12.1 SECONDS (9.7-12.8)
[2020-12-20] MEDS ORDERED: NORCO 325 MG-51 TAB PO (07:28)
[2020-12-20] MEDS ORDERED: TUMS500 MG PO (07:33)
--- NOTE | 2020-12-20 07:40 | NUR ---
appears to be dozing, bedside shift report received from VENESSA Ko
[2020-12-20 07:41] VITALS: BP 124/51; PULSE 67
--- NOTE | 2020-12-20 08:50 | NUR ---
awake and resting in bed, admission assessment and physical completed, see admission documentation, she is alert and answer questions appropriately although slow and forgetful at times, denies pain at this time,
--- NOTE | 2020-12-20 09:18 | NUR ---
Dr Ronquillo and care team in to see patient, IV rate increased to 100ml/hr
[2020-12-20 09:21] LABS: COLLECTION METHOD CATHETER
[2020-12-20 09:30] LABS: MUCOUS Present /lpf; PH 6 (5-8); SQUAMOUS EPITHELIAL None Seen /hpf; URINE APPEARANCE Cloudy; URINE BACTERIA None Seen /hpf; URINE BILIRUBIN Negative (NEGATIVE); URINE BLOOD 3+ (NEGATIVE); URINE COLOR Yellow; URINE GLUCOSE Negative (NEGATIVE); URINE KETONE Negative (NEGATIVE); URINE LEUKOCYTE ESTERASE Trace (NEGATIVE); URINE NITRATE Negative (NEGATIVE); URINE PROTEIN(semi-quant) 2+ (NEGATIVE); URINE RBC >50 /hpf; URINE UROBILINOGEN Negative (NEGATIVE)
--- NOTE | 2020-12-20 11:00 | NUR ---
Dr Ladd in to see patient
--- NOTE | 2020-12-20 11:00 | NUR ---
Dr Ladd in to see patient and notified of UTI, KRISTA Hurtado aware of UA results and orders received, patient is resting in bed without grimacing or moaning
--- NOTE | 2020-12-20 11:54 | NUR ---
resting in bed, unable to obtain temperature either orally or axillary, have tried numerous times, urine is starting to become light destiny as it was dark destiny this am
[2020-12-20 11:57] VITALS: BP 120/47; PULSE 61
--- NOTE | 2020-12-20 13:56 | NUR ---
resting quietly in bed, daughter in to visit
--- NOTE | 2020-12-20 14:36 | NUR ---
awake and visiting with her daughter, sitting up and bed and ready to eat hamburger and fries
[2020-12-20 16:00] VITALS: BP 111/33; PULSE 64
--- NOTE | 2020-12-20 16:12 | NUR ---
Cake Batter Mixer met with patient and her daughter, Anita to discuss discharge planning. Patient lives at [facility] and reports she has lived there since September. Patient sees Dr. Lenz for primary care and has medications administered to her by staff at [facility]. Patient uses a wheelchair for ambulation and needs assistance with ADLS. Patient has DPOA-HC which designates both of her daughters, Monisha and Anita. Plan will be for patient to return to [facility] upon discharge. SW contacted VENESSA Ann at [facility] and faxed clinical updates. Patient to have surgery tomorrow. Discharge Plan: [facility]
--- NOTE | 2020-12-20 18:41 | NUR ---
bedside shift report given to VENESSA Roach
[2020-12-20 19:36] VITALS: BP 119/41; PULSE 64; TEMP 97.8
[2020-12-20 23:21] VITALS: BP 98/39; PULSE 62; TEMP 97.9
[2020-12-20 23:26] VITALS: BP 101/34
[2020-12-21] VITALS (20 sets, daily range): BP systolic 96–142; BP diastolic 33–88; PULSE 61–69; TEMP 97.1–98.3
[2020-12-21 06:46] LABS: BASO % 0.1 % (0.0-2.0); EOS # 0.2 K/mm3 (0.0-0.7); EOS % 1.8 % (0-4.0); GRAN # 6.2 K/mm3 (1.4-6.5); GRAN % 73.7 % (42.2-75.2); LYMPH % 11.4 % (20.0-51.0); MEAN CELL VOLUME 93 fl (80.0-100.0); MEAN CORPUSCULAR HGB CONC 30 g/dl (33.0-37.0); MEAN PLATELET VOLUME 12.6 fl (7.4-10.4); PLATELET COUNT 180 K/mm3 (130-400); RED BLOOD COUNT 2.28 M/mm3 (4.10-5.30); REDCELL DISTRIBUTION WIDTH-CV 15.7 % (11.5-14.5)
[2020-12-21 06:56] LABS: HEMATOCRIT 21.1 % (37.0-47.0); HEMOGLOBIN 6.4 g/dl (12.5-16.0); MEAN CORPUSCULAR HEMOGLOBIN 28 pg (27.0-31.0)
[2020-12-21 07:09] LABS: CALCIUM 8.7 mg/dL (8.4-10.2); CREATININE, serum 0.84 mg/dL (0.57-1.11); POTASSIUM 3.8 mmol/L (3.5-4.5)
--- NOTE | 2020-12-21 07:35 | NUR ---
HOSPITALIST AWARE OF AM HGB OF 6.4, SEE ORDERS FOR BLOOD TRANSFUSION BEFORE SURGERY.
--- NOTE | 2020-12-21 08:30 | NUR ---
OBTAINED BLOOD & SURGERY CONSENT OVER THE PHONE WITH DAUGHTER WITH TWO RN'S. CONSENT ON CHART.
--- NOTE | 2020-12-21 08:32 | NUR ---
UNIT OF BLOOD NOW READY IN LAB, GOING TO GET BLOOD
--- NOTE | 2020-12-21 08:44 | NUR ---
STARTED UNIT OF BLOOD PER ORDERS. PATIENT TOLERATING WELL SO FAR. VSS. WILL MONITOR.
--- NOTE | 2020-12-21 10:54 | NUR ---
Clinical updates faxed to [facility] SOLANO
--- NOTE | 2020-12-21 11:15 | NUR ---
Blood transfusion started at this time per protocol and per ANES. pt laying in bed in PACU with eyes shut, no facial grimicing noted, responds to quickly to verbal stimuli and denies any pain or needs at this time, will continue to monitor and transfuse blood
--- NOTE | 2020-12-21 11:15 | NUR ---
NURSING STAFFED DISCUSSED CASE INCLUDING HGB, BLOOD TRANSFUSION, AND TIME OF SURGERY WITH OR STAFF WHILE MAKING HOSPITALIST ROUNDS. OR INSURANCE PROCESSOR CLARIFIED THAT ANESTHESIA WAS AWARE OF HGB AND BLOOD TRANSFUSION AND PATIENT WILL GO DOWN TO SURGERY BEFORE 2PM. CONSENT ALREADY OBTAINED OVER THE PHONE. BLOOD TRANSFUSION STILL INFUSING VIA PUMP INTO LEFT FORARM IV.
--- NOTE | 2020-12-21 11:35 | NUR ---
NURSING STAFFED DISCUSSED CASE INCLUDING HGB, BLOOD TRANSFUSION, AND TIME OF SURGERY WITH OR STAFF WHILE MAKING HOSPITALIST ROUNDS. OR SCREEN PRINTING PRESS OPERATOR CLARIFIED THAT ANESTHESIA WAS AWARE OF HGB AND BLOOD TRANSFUSION AND PATIENT WILL GO DOWN TO SURGERY BEFORE 2PM. CONSENT ALREADY OBTAINED OVER THE PHONE. BLOOD TRANSFUSION STILL INFUSING VIA PUMP INTO LEFT FORARM IV.
--- NOTE | 2020-12-21 12:45 | NUR ---
TALKED WITH HOSPITALIST & OR STAFF. PATIENT TO GET NEXT UNIT OF BLOOD IN OR. PATIENT GOING DOWN TO OR SOON. HANGING PRE-OP FLUIDS. CONSENT ON CHART.
--- NOTE | 2020-12-21 12:55 | NUR ---
PATIENT GOING DOWN TO OR VIA BED. PATIENT OFF FLOOR
--- NOTE | 2020-12-21 14:30 | NUR ---
PATIENT BACK IN ROOM, AFTER RECEIVING ANESTHESIA FOR PENDING SURGERY. ORTHO CANCELED SURGERY LAST MINUTE DUE TO LOW HGB. PATIENT DID RECEIVE 1ST UNIT OF PRBC PER HOSPITALIST AND WAS CURRENTLY GETTING A 2NG UNIT OF PRBC IN PACU. PATIENT WAS TAKEN DOWN TO SURGERY SHORTY AFTER 1ST UNIT OF BLOOD COMPLETED SO A REPEAT H&H WAS NOT POSSIBLE DUE TO PENDING ORDER FOR 2ND UNIT OF BLOOD, PER PROTOCOL WOULD BE DRAWN NO EARLIER THAN 1 HOUR POST TRANSFUSIONS. PATIENT BACK IN ROOM, RESTING WITH NO COMPLATINS. VSS. BHANDARI TO DD. IV FLUIDS INFUSING VIA PUMP. CALL LIGHT IN REACH. BED ALARM ON.
[2020-12-21 16:10] LABS: HEMATOCRIT 29.3 % (37.0-47.0); HEMOGLOBIN 9.2 g/dl (12.5-16.0)
--- NOTE | 2020-12-21 18:27 | NUR ---
Patient laying in bed, easily awakened with verbal command. A&O, drowsy. VSS 1L NC O2. IV CDI. Lao intact. Leg immobilizer left leg on. Lao intact. Nurse ordered dinner, but the patient states that she is not hungry. Denies pain and discomfort. No further needs expressed. Call light within reach
--- NOTE | 2020-12-21 20:41 | NUR ---
PT AWAKE. DID NOT EAT DINNER, DENIES HUNGER. TAKES HS MEDS WITHOUT PROBLEM. HAS SL TO LFA FLUSHES WELL, HAS RFA IVF INFUSING WITHOUT PROBLEM. BHANDARI TO BSD, CATHETER CARES PROVIDED. URINE DK YELLOW WITH SEDIMENT. WEARING O2 AT 2L/NC. IS ORIENTED TO SELF.
--- NOTE | 2020-12-21 23:30 | NUR ---
PT IN BED, HAS COVERS OFF, ASKING TO GET OUT OF THE CHAIR AND GO TO BED. REORIENTED TO PLACE AND TIME. WILL MONITOR FOR CHANGES.
[2020-12-22] VITALS (11 sets, daily range): BP systolic 104–136; BP diastolic 40–76; PULSE 58–66; TEMP 96.3–97.8
--- NOTE | 2020-12-22 05:00 | NUR ---
Pt awake, has gown and oxygen off. Is confused to place and time. Redressed and oxygen back on. Takes scheduled AM med with sip of water.
[2020-12-22 06:35] LABS: BASO % 0.2 % (0.0-2.0); EOS % 0.2 % (0-4.0); GRAN # 8.8 K/mm3 (1.4-6.5); GRAN % 78.3 % (42.2-75.2); MEAN CORPUSCULAR HGB CONC 32 g/dl (33.0-37.0); MEAN PLATELET VOLUME 12.3 fl (7.4-10.4); MONO # 1.3 K/mm3 (0.1-0.6); MONO % 11.4 % (1.7-9.3); PLATELET COUNT 170 K/mm3 (130-400); RED BLOOD COUNT 3.33 M/mm3 (4.10-5.30); REDCELL DISTRIBUTION WIDTH-CV 16.4 % (11.5-14.5)
[2020-12-22 06:54] LABS: CALCIUM 8.8 mg/dL (8.4-10.2); CREATININE, serum 0.79 mg/dL (0.57-1.11); POTASSIUM 3.8 mmol/L (3.5-4.5)
[2020-12-22 07:09] LABS: HEMOGLOBIN 9.4 g/dl (12.5-16.0); MEAN CELL VOLUME 87 fl (80.0-100.0); MEAN CORPUSCULAR HEMOGLOBIN 28 pg (27.0-31.0)
--- NOTE | 2020-12-22 09:25 | NUR ---
PATIENT GOING DOWN TO SURGERY VIA BED. CONSENT ON CHART. 2 UNITS OF BLOOD ON HOLD IN LAB, IF NEEDED IN THE OR. PRE-OP FLUIDS INFUSING VIA GRAVITY. PATIENT OFF FLOOR.
--- NOTE | 2020-12-22 10:41 | NUR ---
Clinical updates faxed to [facility] SOLANO
--- NOTE | 2020-12-22 12:04 | NUR ---
Pt had an ok morning before she left for surgery. Was a little more lively today but also more confused. Tolerated her oral meds well. IV site in left wrist and right forearm. Handed her off to pre-op at 1000. ADN student, Coty
[2020-12-22 14:54] LABS: HEMATOCRIT 34.6 % (37.0-47.0); HEMOGLOBIN 11.4 g/dl (12.5-16.0)
--- NOTE | 2020-12-22 20:20 | NUR ---
PT IN BED. HAS OXYMASK AT 8L, DECREASED TO NC AT 4L, SAO2 93%. PT IS ALERT, CONFUSED. HAS MITTS ON BILATERALLY SHE WAS REMOVING OXYGEN AND ATTEMPTING TO TAKE IV AND BHANDARI OUT. HAS LARGE BULKY DRSG TO LEFT HIP/LEG. DENIES PAIN AT THIS TIME. IV TO RFA INFUSING WITHOUT REDNESS OR SWELLING, HAS SL TO LFA, FLUSHES WELL. BHANDARI WITH EXCELLENT OUTPUT. EMPTIED 1350CC AT THIS TIME. TAKES HS MEDS WITHOUT PROBLEM. ALSO FED AN APPLESAUCE SHE REFUSED DINNER. BED ALARM ON.
[2020-12-22 20:28] LABS: HEMOGLOBIN 11.4 g/dl (12.5-16.0)
[2020-12-22 20:30] LABS: HEMATOCRIT 34.1 % (37.0-47.0)
--- NOTE | 2020-12-22 23:28 | NUR ---
PT TAKES SCHEDULED ES TYLENOL CRUSHED IN APPLESAUCE. PT CONFUSED AND THINKS SHE IS IN [place]. REDIRECTED WITHOUT SUCCESS.
[2020-12-23] VITALS (7 sets, daily range): BP systolic 90–123; BP diastolic 33–75; PULSE 61–76; TEMP 97.5–98
--- NOTE | 2020-12-23 00:09 | NUR ---
PT AWAKE, COMPLAINS OF PAIN, OXYCODONE 5MG PO WITH PHENERGAN 25MG PO AT THIS TIME. PT THINKS HER DOG IS HERE AND HER BROTHER IS TALKING TO HER BEFORE ANY PAIN MEDS WERE GIVEN.
--- NOTE | 2020-12-23 04:44 | NUR ---
REPOSITIONED TO RT SIDE. PT TOLERATED WELL. ICE PACK REPLACED TO LEFT HIP. MITTS WERE REMOVED BY PT, REPLACED BY STAFF. O2 @4L/NC. BHANDARI WITH YELLOW URINE DRAINING WELL.
--- NOTE | 2020-12-23 06:01 | NUR ---
TAKES SCHEDULED AM MED AND OXYCODONE 5MG PO FOR PAIN.
[2020-12-23 07:08] LABS: HEMOGLOBIN 10.3 g/dl (12.5-16.0); MEAN CELL VOLUME 86 fl (80.0-100.0); MEAN CORPUSCULAR HEMOGLOBIN 29 pg (27.0-31.0); MEAN CORPUSCULAR HGB CONC 34 g/dl (33.0-37.0); MEAN PLATELET VOLUME 12.3 fl (7.4-10.4); PLATELET COUNT 151 K/mm3 (130-400); RED BLOOD COUNT 3.55 M/mm3 (4.10-5.30); REDCELL DISTRIBUTION WIDTH-CV 15.4 % (11.5-14.5)
[2020-12-23 07:10] LABS: HEMATOCRIT 30.6 % (37.0-47.0)
[2020-12-23 07:24] LABS: CREATININE, serum 0.82 mg/dL (0.57-1.11); POTASSIUM 3.9 mmol/L (3.5-4.5)
[2020-12-23 07:30] LABS: BAND 3 % (0-10); LYMPHOCYTE 2 % (20.0-51.0); NEUTROPHILS 84 % (42.0-75.2); PLATELET ESTIMATE NORMAL (NORMAL)
--- NOTE | 2020-12-23 09:18 | NUR ---
PT IS ALERT BUT CONFUSED THIS AM. SHE SAYS HER BROTHER IS HERE TO PICK HER UP SO SHE NEEDS TO GET READY TO LEAVE. O2 CANNULA IN PLACE AND RUNNING AT 4L. LUNG JENKINS ARE CLEAR BILATERALLY AND NO COUGH IS OBSERVED. PT HAD ROUNDED ABDOMEN AND BOWEL SOUNDS ARE ACTIVE X4. BHANDARI IS IN PLACE AND CLEAR YELLOW URINE IS OBSERVED IN BHANDARI BAG. PT HAS 2 INT IVS. ONE IN LEFT FOREARM AND OTHER IS IN THE RIGHT FOREARM. AM MEDICATIONS GIVEN AND HEAD TO TOE ASSESSMENT COMPLETE. BED IN LOW, LOCKED POSITION AND ALARM IS ON. MITS ARE ON HANDS BUT CALL LIGHT IS WITHIN REACH.
--- NOTE | 2020-12-23 11:30 | NUR ---
PATIENT IS INCREASINGLY CONFUSED AND IS SEEING BABIES IN HER ROOM. PATIENT IS UPSET AND THINKS THE BABIES ARE FALLING. NURSING TRIED TO RE-ORIENT PATIENT. HOSPITALIST AT BEDSIDE, SEE NEW ORDERS. CALLED HOSPITALIST TO REVIEW CXR
--- NOTE | 2020-12-23 12:04 | NUR ---
PT IS NOW MORE CONFUSED AND LESS ORIENTED. SHE IS SPEAKING ABOUT "BABIES ALL OVER THE PLACE" AND "MILKING COWS." SHE ALSO SEEMS TO BE MORE AGGRIVATED WITH STAFF.
[2020-12-23 12:40] LABS: ARTERIAL BLD GAS O2 SATURATION 92.6 % (92-100); ARTERIAL BLD GAS TCO2 CT 23.3; ARTERIAL BLOOD GAS BASE EXCESS -1.2 (-2-2); ARTERIAL BLOOD GAS HCO3 22.3 meq/L (22-26); ARTERIAL BLOOD GAS PCO2 32.7 mmHg (35-45); ARTERIAL BLOOD GAS PO2 60.8 mmHg (80-100); ARTERIAL BLOOD GAS pH 7.45 (7.35-7.45)
--- NOTE | 2020-12-23 20:20 | NUR ---
PT ABLE TO GET MITTS OFF AND HAS PULLED OFF HER LEFT HIP DRSG. REPLACED WITH AQUACEL AT THIS TIME. MITTS BACK ON. PT HITTING STAFF AND THINKS HER COUSIN IS IN THE ROOM. MEDICATED WITH MORPHINE 2MG IVP FOR PAIN. HAS SL TO RFA AND LFA, BOTH FLUSH WELL. BHANDARI WITH YELLOW URINE. CARES PROVIDED. OXYGEN AT 4L/NC.
--- NOTE | 2020-12-23 20:28 | NUR ---
ATTEMPTED SVN DUONEB WITH PT, PT BATS AWAY NEBULIZER, HITTING THIS RT AND RN AND YELLING AT US TO STOP. PT WILL NOT TOLERATE SVN AT THIS TIME.
--- NOTE | 2020-12-23 22:12 | NUR ---
PT TAKES MEDS IN MAGIC CUP SUPPLEMENT. THINKS SHE IS STANDING UP AND WANTS TO GO TO BED. ATTEMPTED TO REORIENT PT WITHOUT SUCCESS.
--- NOTE | 2020-12-24 01:02 | NUR ---
Patient care, medication administration and nursing documentation occurred during a Daylight Savings Time Change.
--- NOTE | 2020-12-24 01:49 | NUR ---
PT RESTLESS, LEFT LEG PAIN. MORPHINE 2MG IVP AT THIS TIME.
[2020-12-24 02:57] LABS: ARTERIAL BLD GAS O2 SATURATION 80.5 % (92-100); ARTERIAL BLD GAS TCO2 CT 23.4; ARTERIAL BLOOD GAS BASE EXCESS -1.2 (-2-2); ARTERIAL BLOOD GAS HCO3 22.4 meq/L (22-26); ARTERIAL BLOOD GAS PCO2 33.5 mmHg (35-45); ARTERIAL BLOOD GAS pH 7.44 (7.35-7.45)
[2020-12-24 03:48] VITALS: BP 97/39; PULSE 60; TEMP 98.4
[2020-12-24 04:07] LABS: ARTERIAL BLOOD GAS PO2 43.8 mmHg (80-100)
--- NOTE | 2020-12-24 04:30 | NUR ---
PT ON AIRVO AT 35L, SAO2 91%. PT CONTINUES TO HAVE MITTS ON. NEW ORDER FOR VANCOMYCIN. UA COLLECTED.
--- NOTE | 2020-12-24 04:41 | NUR ---
89 yo female admitted for further care and treatment of possible healthcare associated pneumonia. ht 66in wt 65.9kg SCr 0.82 with estimated CrCl ~40 ml/min estimated half life 17.4 hours Plan: Will give an initial loading dose of vancomycin 1250 mg x1 (19 mg/kg); followed by a maintenance regimen of vancomycin 1000 mg q18h to target a goal trough of 15-20 mcg/ml. Will follow patient's renal function, micro data, and vancomycin levels as indicated to assess for any necessary changes to regimen. Thank you for this dosing consult.
--- NOTE | 2020-12-24 04:46 | NUR ---
89 yo female admitted to further care and management of possible healthcare associated pneumonia. ht 66in wt 65.9kg SCr 0.82 with estimated CrCl ~40 ml/min estimated half life 17.4 hours Plan: Will give an initial loading dose of vancomycin 1250 mg x1 (19 mg/kg); followed by a maintenance regimen of vancomycin 1000 mg q18h to target a goal trough of 15-20 mcg/ml. Will follow patient's renal function, micro data, and vancomycin levels as indicated to assess for any necessary changes to the regimen. Thank you for this dosing consult.
--- NOTE | 2020-12-24 06:16 | NUR ---
PT MORE FRIENDLY THIS AM. HAS IV VANCO INFUSING WITHOUT PROBLEM. TAKES SCHEDULED AM MED PO AT THIS TIME.
[2020-12-24 07:27] LABS: CALCIUM 8.4 mg/dL (8.4-10.2); CREATININE, serum 1.1 mg/dL (0.57-1.11); POTASSIUM 3.5 mmol/L (3.5-4.5)
--- NOTE | 2020-12-24 07:50 | NUR ---
HOSPITALIST NOTIFIED OF WBC, SEE NEW ORDERS.
--- NOTE | 2020-12-24 08:00 | NUR ---
PATIENT IS ALERT BUT CONFUSED. PATIENT HAS HX OF CONFUSION. PATIENT HAS HAD INCREASING OXYGEN NEEDS OVER NIGHT AND IS NOW ON 35L AIRVO WITH SATS IN LOW 90'S. MITTS TO BUE. PATIENT KEEPS PULLING AT HER OXYGEN & CORDS. LEAD SEWAGE PLANT OPERATOR REPORTS PATIENT GOT ONE OF HER MITTS OFF AND PULLED OFF HER LEFT HIP POST OP DRESSING. AQUACEL DRESSING TO LEFT HIP NOTED SOME DRAINAGE THIS AM. ICE PACK TO LEFT HIP. TEDS & SCD'S TO BLE. POSITIVE PEDAL PULSES TO BLE. BHANDARI TO DD WITH MOD AMOUNTS OF CLEAR YELLOW URINE. HEAD TO TOE ASSESSMENT COMPLETE. NOTED DEMINISHED A&P LUNG JENKINS. NO C/O N/V BUT PATIENT DOESN'T HAVE MUCH OF AN APPETITE. AM MEDS CRUSHED AND GIVEN WITH APPLESAUCE. PATIENT ASSISTED TO EAT SOME OF HER BREAKFAST. DNR STATUS. HOSPITALIST ATTEMPTED TO CALL DAUGHTER, NO ANSWER. LEFT AND RIGHT FORARM IV'S TO INT. PATIENT IS WEAK AND PALE. PT/OT CONSULTED. PATIENT STILL SEEING PEOPLE IN THE ROOM WHO ARE NOT THERE. BED ALARM ON. CALL LIGHT IN REACH. PATIENT OBSERVED FROM NURSES STATION.
[2020-12-24 08:13] LABS: HEMOGLOBIN 10.3 g/dl (12.5-16.0); MEAN CELL VOLUME 87 fl (80.0-100.0); MEAN CORPUSCULAR HEMOGLOBIN 29 pg (27.0-31.0); MEAN CORPUSCULAR HGB CONC 33 g/dl (33.0-37.0); MEAN PLATELET VOLUME 12.5 fl (7.4-10.4); PLATELET COUNT 192 K/mm3 (130-400); RED BLOOD COUNT 3.58 M/mm3 (4.10-5.30); REDCELL DISTRIBUTION WIDTH-CV 15.8 % (11.5-14.5)
[2020-12-24 08:44] LABS: HEMATOCRIT 31.2 % (37.0-47.0)
--- NOTE | 2020-12-24 08:45 | NUR ---
VENESSA Singer (patient nurse) called with WBC 21.5.
[2020-12-24 09:49] LABS: ARTERIAL BLD GAS TCO2 CT 23.6; ARTERIAL BLOOD GAS BASE EXCESS -0.6 (-2-2); ARTERIAL BLOOD GAS HCO3 22.6 meq/L (22-26); ARTERIAL BLOOD GAS PCO2 33.3 mmHg (35-45); ARTERIAL BLOOD GAS pH 7.45 (7.35-7.45)
[2020-12-24 09:53] LABS: ARTERIAL BLD GAS O2 SATURATION 92.3 % (92-100)
[2020-12-24 09:57] VITALS: BP 118/79; PULSE 73; TEMP 98.2
[2020-12-24 12:20] VITALS: BP 105/31; BP 123/103; PULSE 73; TEMP 98.4
--- NOTE | 2020-12-24 12:40 | NUR ---
AT BEDSIDE VISITING WITH DAUGHTER ABOUT CODE STATUS AND CARE PLAN.
[2020-12-24 12:46] LABS: HYPOCHROMIA 1+; LYMPHOCYTE 5 % (20.0-51.0); NEUTROPHILS 91 % (42.0-75.2)
[2020-12-24 12:47] LABS: ANISOCYTOSIS 1+; PLATELET ESTIMATE NORMAL (NORMAL)
--- NOTE | 2020-12-24 13:00 | NUR ---
PATIENT NOW ON 40L, 70% AIRVO. & AT BEDSIDE. DAUGHTER LEAVING TO GO TALK WITH HER SISTER.
[2020-12-24 15:37] VITALS: BP 123/36; PULSE 77; TEMP 98.5
--- NOTE | 2020-12-24 16:45 | NUR ---
PATIENT IS NOW SOA AT REST. AIRVO CURRENTLY AT 40L, 72% WITH SATS AT 91%. PATIENT STILL CONFUSED BUT IS MORE LETHARGIC TODAY. PATIENT TALKED ALL DAY YESTERDAY BUT IS HARDLY TALKING TODAY. PATIENT MOSTLY SLEEPING. ARROUSES TO STIMULI BUT IS TO SHORT OF AIR WITH TALKING.
--- NOTE | 2020-12-24 18:15 | NUR ---
NURSE & HOSPITALIST AT BEDSIDE. PATIENT GOING COMFORT CARE. DAUGHTERS LEFT FOR THE EVENING. AIRVO OFF AND PATIENT PLACED ON OXY MASK AT 6L. SCOPE PATCH INPLACE. RT NOTIFIED. SEE ORDERS.
[2020-12-24 20:00] VITALS: BP 117/34; PULSE 76; TEMP 99.1
--- NOTE | 2020-12-24 21:11 | NUR ---
PT REPOSITIONED. NEW ICE APPLIED. PT DOES RESPOND WITH SOME FAINT MUMBLING WHEN ADDRESSED VERBALLY OR REPOSITIONED. PLAN ON ADMIN. MORPHINE AT APPROX. 2200 WHEN DUE FOR COMFORT.
--- NOTE | 2020-12-25 03:37 | NUR ---
RESTING QUIETLY/SLEEPING. NO INDICATION OF PAIN. RESPIRATIONS HAVE SLOWED DOWN. EXTREMITIES WARM. FAINT BUT PALPABLE PEDAL PULSES. ORAL CARE PROVIDED. TURNED Q 2-3 HOURS.
[2020-12-25 04:00] VITALS: PULSE 67
[2020-12-25 07:18] LABS: BASO % 0.1 % (0.0-2.0); GRAN # 13.7 K/mm3 (1.4-6.5); GRAN % 86.6 % (42.2-75.2); LYMPH # 0.8 K/mm3 (1.2-3.4); LYMPH % 5.2 % (20.0-51.0); MEAN CELL VOLUME 87 fl (80.0-100.0); MEAN CORPUSCULAR HGB CONC 33 g/dl (33.0-37.0); MEAN PLATELET VOLUME 12.3 fl (7.4-10.4); MONO # 1.1 K/mm3 (0.1-0.6); MONO % 6.8 % (1.7-9.3); PLATELET COUNT 191 K/mm3 (130-400); RED BLOOD COUNT 2.82 M/mm3 (4.10-5.30); REDCELL DISTRIBUTION WIDTH-CV 15.7 % (11.5-14.5)
[2020-12-25 07:28] LABS: CALCIUM 8.2 mg/dL (8.4-10.2); CREATININE, serum 1.27 mg/dL (0.57-1.11); POTASSIUM 3.3 mmol/L (3.5-4.5)
[2020-12-25 07:57] VITALS: PULSE 73
--- NOTE | 2020-12-25 08:00 | NUR ---
PT IS MILDLY RESPONSIVE. NURSE ASKED IF SHE NEEDED ANYTHING AND SHE RESPONDED "NO." HOWEVER THIS IS THE ONLY RESPONSE RECEIVED. DNR IS IN PLACE AND COMFORT CARE BEING GIVEN. PT IS ON 6L OXYGEN VIA NC. INY IV TO LEFT AND RIGHT FOREARM. SMALL AMOUNT OF LORRAINE COLORED URINE NOTED IN BHANDARI BAG. HEAD TO TOE ASSESSMENT COMPLETE AND COMFORT CARE MEDICATION GIVEN.
[2020-12-25 08:05] LABS: HEMATOCRIT 24.6 % (37.0-47.0); HEMOGLOBIN 8.2 g/dl (12.5-16.0); MEAN CORPUSCULAR HEMOGLOBIN 29 pg (27.0-31.0)
--- NOTE | 2020-12-25 09:53 | NUR ---
PATIENT'S BROTHER NOW AT BEDSIDE
--- NOTE | 2020-12-25 10:06 | NUR ---
Comfort quilt provided to pt as noted per records that she is on comfort care. Family is at bedside and explanation provided for the quilt.
[2020-12-25 11:28] VITALS: PULSE 71
--- NOTE | 2020-12-25 14:03 | NUR ---
Spoke with the daughter Romana on what the family would like to go moving forward as far as going to a hospice facility or going back to [facility] with hospice services. Romana isn't familiar with the options available and would like for her and her sister to come up and speak with palliative RN tomorrow at 1000 for more education on the difference between a hospice facility and going back to [facility] with hospice services. Romana verbalizes she doesn't know much about hospice and how it works and "would feel more comfortable if we had someone to ask questions to." Collaboration made with RN and Troy Baltazar for consult for VENESSA Silveira to speak with the daughters.
[2020-12-25 15:34] VITALS: PULSE 73
--- NOTE | 2020-12-25 20:50 | NUR ---
Pt. laying in bed. Pt. is minimally responsive to touch. Daughter at bedside. O2 at 44 % on 6 L nc. Daughter has decided to remove O2 and give morphine. Will give per comfort care measures.
--- NOTE | 2020-12-25 21:42 | NUR ---
Pt. daughter reports that pt. has stopped breathing. 2 nurse varification. Pt. time of 2141. oil field equipment mechanic supervisor notified. KRISTA Montgomery notified.
--- NOTE | 2020-12-25 21:57 | NUR ---
Contacted [facility] and spoke with Cora. Patient is not a candidate for donation due to age. Referral #[id number]
--- NOTE | 2020-12-25 23:02 | NUR ---
Contacted [facility] per family request.
--- NOTE | 2020-12-25 23:48 | NUR ---
Pt. released to home. [facility] home.
== END 2020-12-25 23:49 | disposition expired | DRG 480 ==
LOC: COL.ER 02:47 → SURG 04:47
PROVIDERS: Orthopaedic Surgery; Physician Assistant; Registered Nurse; Student in an Organized Health Care Education/Training Program; ADMIT Internal Medicine
PROC: 0QS904Z Reposition Left Femoral Shaft with Internal Fixation Device, Open Approach (ICD-10-PCS; principal; 2020-12-22 13:30)
PROC: 0QP904Z Removal of Internal Fixation Device from Left Femoral Shaft, Open Approach (ICD-10-PCS; 2020-12-22 13:30)
DX: T84.115A Breakdown (mechanical) of internal fixation device of left femur, initial encounter (principal); S72.352A Displaced comminuted fracture of shaft of left femur, initial encounter for closed fracture; J96.01 Acute respiratory failure with hypoxia; J18.9 Pneumonia, unspecified organism; I50.30 Unspecified diastolic (congestive) heart failure; E44.0 Moderate protein-calorie malnutrition; M97.02XA Periprosthetic fracture around internal prosthetic left hip joint, initial encounter; F03.90 Unspecified dementia, unspecified severity, without behavioral disturbance, psychotic disturbance, mood disturbance, and anxiety; Z68.23 Body mass index [BMI] 23.0-23.9, adult; Z66 Do not resuscitate; I48.0 Paroxysmal atrial fibrillation; I11.0 Hypertensive heart disease with heart failure; E78.5 Hyperlipidemia, unspecified; I73.9 Peripheral vascular disease, unspecified; Z85.3 Personal history of malignant neoplasm of breast; Z79.82 Long term (current) use of aspirin; D64.9 Anemia, unspecified; E03.8 Other specified hypothyroidism; K59.00 Constipation, unspecified; R41.0 Disorientation, unspecified; W19.XXXA Unspecified fall, initial encounter
CPT/HCPCS: 99223-AI; 99231-AI; 99232-AI; 99233-AI; A4314; A9284; C1713; J0330; J0690; J0696; J1650; J1940; J2250; J2270; J2370; J2543; J2704; J2795; J3010; J3370; J7030; J7040; J7050; L1846; P9016